=== PATIENT | male | born 1935 | race Caucasian/White ===

== ENCOUNTER 2023-11-08 19:30 | Inpatient (IN) | payer OTHER, SELFPAY ==
[2023-11-08] VITALS (19 sets, daily range): BP systolic 110–168; BP diastolic 65–144; BMI 24.5; BMI 24.3
--- NOTE | 2023-11-08 12:56 | ED.GENMED ---
History of Present Illness
General
Chief Complaint: Breathing Problem
Source: patient
Exam Limitations: none
Time Seen by Provider: 11/08/23 12:47
Nursing documentation reviewed up to this point in time: agreed with
Travel History
Have you had any contact with someone who has COVID-19?: No
Do you have any symptoms of coronavirus? Fever > 100 degrees, chills, cough, shortness of breath, sore throat, loss of taste or smell, muscle aches, or headache?: No
History of Present Illness
History of Present Illness:
88-year-old male with a past medical history of DVT, diabetes, BPH who presents to the emergency department for evaluation of shortness of breath. Patient reports onset of symptoms about a week ago and have been constant and worsening since that
time. He reports dyspnea with even light exertion now having some mild dyspnea at rest. He denies any chest pain. He denies any coughing. He has not had any fever or chills or URI type symptoms. He has not noticed any swelling or pain in his
legs. He denies any other complaints today.
Past History
Past History
ED Past Medical History: HTN, NIDDM and Other (DVT)
ED Past Surgical History: Other (Hiatal hernia repair at [facility] last year)
Social History
Tobacco: Former smoker
Alcohol: None
Drug: None
Personal:
Living: alone ([place])
Employment: Retired
Family History
Family History: Early CAD (Son with AL at 40 )
Review of Systems
Review of Systems
All Other Systems: ROS reviewed and negative except as documented in HPI and ROS
Constitutional: Reports fatigue; Denies fever or chills
EENT: Denies sore throat or runny nose
Respiratory: Reports trouble breathing; Denies cough
Cardiac: Denies chest pain, diaphoresis or palpitations
ABD/GI: Denies abdominal pain, nausea, vomiting or diarrhea
: Denies flank pain
Musculoskeletal: Denies edema, neck pain or back pain
Neurological: Denies dizzy, headache, weakness or numbness
Phy Exam
Physical Exam
Physical Exam:
General: Awake, alert, oriented x3 and quite pleasant; no acute distress
Head: Normocephalic, atraumatic
Eyes: Conjunctiva normal, sclera anicteric
Throat: Airway intact, handling secretions
Neck: Trachea midline, supple without meningismus
Lungs: Clear to auscultation bilaterally, no wheezing, rales, rhonchi
Heart: Regular rate and rhythm, no murmurs, gallops, or rubs
Abd: Soft, non distended, nontender
Neuro: Cranial nerves grossly intact, speech fluid
Skin: no rash
Extremities: No edema in extremities, equal pulses in all extremities
Scores
Heart Failure Risk
Heart Failure Risk Score: Not Applicable
Heart Score for Chest Pain Patients
STEMI patient?: Not applicable
Withdrawal Assessment of Alcohol
Withdrawal Assessment Completed?: Not applicable
Course
Orders/Labs/Results
Orders:
Orders
11/08/23 12:48
Electrocardiogram (*1) Urgent
Reason for Study: Shortness of Breath
EKG- Treatment ONCE
CR Chest Portable - 1 View Urgent
Comment:
Reason For Exam: sob
Reason Study Needs to be Portable: Unable to Transport
11/08/23 12:59
COVID-19 Antigen Urgent
Source: Nasal Swab
Complete Blood Count/With Diff Urgent
Comprehensive Metabolic Panel Urgent
NT-proBNP Urgent
Troponin I Urgent
Influenza A+B Rapid Molecular Urgent
NANCY Source: Nasal Swab
Specimen Description:
11/08/23 13:59
0.9% Sodium Chloride 500 ml [Nss] 500 ml IV BOLUS
11/08/23 14:08
D-Dimer Urgent
11/08/23 14:22
VQ Scan [NM Lung Scan Vent/perf ] Urgent
Comment:
Reason For Exam: worsening SOB, h/o DVT
11/08/23 16:07
US Periph Venous LOWER Ext Jostin Urgent
Comment:
Reason For Exam: +dimer, worsening SOB--eval for DVT
11/08/23 17:42
Troponin I Urgent
0.9% Sodium Chloride 500 ml [Nss] 500 ml IV BOLUS
Abnormal Lab Results
11/08/23 11/08/23
12:59 14:08
WBC 4.3 L 10^3/uL
(4.8-10.8)
RBC 3.24 L 10^6/uL
(4.70-6.10)
Hgb 11.4 L g/dL
(13.0-18.0)
Hct 31.8 L %
(39.0-52.0)
MCV 98.1 H fL
(80.0-94.0)
MCH 35.2 H pg
(27.0-31.0)
Plt Count 117 L 10^3/uL
(130-400)
Absolute Lymphs (auto) 0.7 L 10^3/uL
(1.2-3.4)
Lymphocytes % 16.4 L %
(20.5-51.1)
Monocytes % 11.0 H %
(1.7-9.3)
D-Dimer 12.32 H ug/mlFEU
(0.00-0.50)
Carbon Dioxide 20 L mmol/L
(22-30)
BUN 42 H mg/dl
(9-20)
Creatinine 2.5 H mg/dL
(0.7-1.3)
Glucose 102 H mg/dl
(70-99)
11/08/23 12:59
02/22/24 12:59
Vital Signs
Initial and Last Documented VS:
Initial Vital Signs
Temp Pulse Resp BP Pulse Ox
36.8 C 95 18 135/92 99
11/08/23 12:09 11/08/23 12:09 11/08/23 12:09 11/08/23 12:09 11/08/23 12:09
Last Documented Vital Signs
Temp Pulse Resp BP Pulse Ox
36.8 C 68 16 132/72 97
11/08/23 12:09 11/08/23 16:00 11/08/23 16:00 11/08/23 16:00 11/08/23 15:45
MDM/Problems Addressed
Differential Diagnosis Includes:
Pneumonia, anemia, CHF, pneumothorax, pulmonary embolism
MDM/Problems Addressed:
88-year-old male with history as above presents for evaluation of worsening shortness of breath over the past week. No chest pain. Vital signs here are normal including a pulse ox of 99% on room air with a respiratory rate of 18. Physical exam as
above. Plan to place an IV check labs including a CBC and a CMP, troponin, BNP. Will check viral swabs and a chest x-ray to start. He does have a history of DVT, PE a consideration (patient says DVT was in the distant past and he is no longer
taking anticoagulation)�will check a D-dimer. Will monitor on telemetry reassess after the above.
Labs reviewed: CBC shows no significant deviations from baseline, CMP shows significant AGUSTIN with creatinine of 2.5 from baseline of 1. Troponin negative but detectable at 0.016; BNP marginally elevated at 900. Viral swabs negative. Chest x-ray no
acute disease. His D-dimer was markedly elevated at 12. Unfortunately with his GFR less than 30 hesitant to give IV contrast for CTA to rule out PE. Discussed with radiology will send for a VQ scan. Will send for bilateral lower extremity
ultrasound. Continue to monitor. Anticipate admission for AGUSTIN and worsening exertional dyspnea pending imaging to evaluate for thromboembolic disease.
Ultrasound negative for DVT. VQ scan pending�will plan for admission to hospitalist for at least AGUSTIN and worsening exertional dyspnea with VQ scan pending will start heparin if intermediate or high probability study. Discussed with hospitalist for
admission.
Chronic conditions affecting care:
DVT
*Radiology
Radiology exam reviewed: preliminary read by ED provider and radiology read reviewed
*Pulse Oximetry
Patient hypoxic: no
*EKG
Interpreted by ED Provider?: Yes
Comparison EKG: no changes
Heart Rate: 76
Rate: normal
Rhythm: sinus
Mcintosh: left axis deviation
Interval: normal interval
QRS Pattern: right bundle branch block
Ischemia: non-specific ST changes
*Critical Care Note
Total Time (30-74mins, 75-104mins- exclusive of procedures): Not Applicable
Data Reviewed
Source: patient and records (Reviewed note from PCP office)
Patient Management
Discussion with other providers: Hospitalist (Discussed with hospitalist)
Escalation/DeEscalation of care consider admission/obs:
Admission indicated
ED Attending Note
-
Portions of this chart may have been created with voice recognition software.� Occasional wrong word or��sound alike� substitutions may have occurred due to the inherent limitations of voice recognition software.
Discharge Plan
Departure
Patient Disposition: Admit
Date of Disposition: 11/08/23
Time of Disposition: 17:57
Admit to doctor: Leesa
Presentation/result/management discussed w/ accepting MD/DO: Hospitalist
Discharge Problem:
AGUSTIN (acute kidney injury), Exertional dyspnea
Prescriptions:
No Action
escitalopram oxalate 10 MG tablet
20 mg PO DAILY
isotretinoin [Claravis] 40 MG capsule
40 mg PO SUWE
hydrocodone-acetaminophen 1 EACH tablet
1 ea PO BIDPRN PRN (Reason: severe pain)
mirtazapine 30 MG tablet
30 mg PO HS
ranitidine HCl [Zantac] 150 MG tablet
150 mg PO HS
omeprazole 20 MG capsule,delayed release(DR/EC)
20 mg PO DAILY
azelastine 1 SPRAY aerosol,spray
1 spray intranasal BID
albuterol sulfate 18 GM HFA aerosol inhaler
1 - 2 puff inhalation R Q6HPRN PRN (Reason: sob)
guaifenesin [Mucus Relief ER] 600 MG tablet extended release 12hr
600 mg PO BIDPRN PRN (Reason: cough,congestion)
dupilumab [Dupixent Syringe] 300 MG/2 ML syringe
300 mg SQ Q2W
guaifenesin [Mucus Relief ER] 600 MG tablet extended release 12hr
600 mg PO Q12 Qty: 30 0RF
doxycycline hyclate 100 MG capsule
100 mg PO Q12 Qty: 14 0RF
cefpodoxime 200 MG tablet
200 mg PO Q12H Qty: 14 0RF
prednisone 10 MG tablet
10 mg PO .TAPER Qty: 26 0RF
Rx Instructions:
60mg on days 1-2; 40mg on days 3-4; 20mg on days 5-6; 10mg on days 7-8
apixaban [Eliquis] 2.5 MG tablet
2.5 mg PO DIRECTED Qty: 0 0RF
Patient Comments:
11/19/19 Patient alternates taking BID and daily every other day
Rx Instructions:
Take two time a day on even days and one time a day on odd days
metformin 500 MG tablet
500 mg PO DAILY Qty: 30 0RF
methylprednisolone [Medrol] 4 mg tablet
4 mg PO DAILY Qty: 21 0RF
Rx Instructions:
Dosepak taper as directed
tramadol 50 mg tablet
25 mg PO Q6H PRN (Reason: Pain) Qty: 14 0RF
Referrals:
Randi Villarreal DO [Family Provider] -
Interventions
Interventions:
*Risk Screen - Suicide Last Done: 11/08/23 12:38
*General Assessment Last Done: 11/08/23 12:38
*Neglect/Abuse Screening Last Done: 11/08/23 12:38
ED- Fall Risk Assessment Last Done: 11/08/23 12:38
*ED COVID-19 Vaccine History Last Done: 11/08/23 12:38
ED- Cardiac Assessment Last Done: 11/08/23 12:38
ED- Pulmonary Assessment Last Done: 11/08/23 12:38
[2023-11-08 13:18] LABS: % Basophils 0.2 % (0-2); % Eosinophils 0.5 % (0-6); % Immature Granulocytes 0.2 % (0-0.5); % Lymphocytes 16.4 % (20.5-51.1); % Neutrophils 71.7 % (42.2-75.2); Absolute Lymphocytes 0.7 10^3/uL (1.2-3.4); Absolute Monocytes 0.5 10^3/uL (0.1-0.6); Absolute Neutrophils 3.1 10^3/uL (1.4-6.5); Hematocrit 31.8 % (39.0-52.0); Hemoglobin 11.4 g/dL (13.0-18.0); Mean Corp Hgb Conc. 35.8 g/dL (33.0-37.0); Mean Corpuscular Hgb 35.2 pg (27.0-31.0); Mean Corpuscular Volume 98.1 fL (80.0-94.0); Mean Platelet Volume 9.1 fL (7.4-10.4); Nucleated Red Blood Cells % 0 % (-); Platelet Count 117 10^3/uL (130-400); Red Blood Cell Count 3.24 10^6/uL (4.70-6.10); Red Cell Dist. Width 12.8 % (11.5-14.5); White Blood Cell Count 4.3 10^3/uL (4.8-10.8)
[2023-11-08 13:29] LABS: COVID-19 Antigen Negative (Negative)
[2023-11-08 13:33] LABS: ALT (SGPT) 33 U/L (0-50); AST (SGOT) 36 U/L (17-59); Albumin 4.1 g/dl (3.5-5.0); Alkaline Phosphatase 65 U/L (38-126); Blood Urea Nitrogen 42 mg/dl (9-20); Calcium 9.9 mg/dl (8.4-10.2); Carbon Dioxide 20 mmol/L (22-30); Chloride 104 mmol/L (98-107); Glucose 102 mg/dl (70-99); Potassium 4.6 mmol/L (3.5-5.1); Sodium 136 mmol/L (135-145); Total Bilirubin 0.7 mg/dl (0.2-1.3); Total Protein 6.6 g/dl (6.3-8.2); eGFR 24.41
[2023-11-08 13:40] LABS: NT-proBNP 900 pg/ml; Troponin I 0.016 ng/ml
[2023-11-08] MEDS: NSS 500 IV ×2 (14:16→18:14)
[2023-11-08 14:42] LABS: D-Dimer 12.32 ug/mlFEU (0.00-0.50)
--- NOTE | 2023-11-08 18:45 | HPS.HSE ---
Family Physician
-
Family Physician: Randi Villarreal
Chief Complaint
-
shortness of breath
History of Present Illness
88-year-old male with past medical history of DVT 30 years ago, diabetes, diabetic neuropathy, BPH, hypertension, hiatal hernia, hypothyroidism, anxiety/depression, COPD, atopic dermatitis, CKD presented to the emergency room for shortness of breath
which started a week ago and has been constant and worsening since then. Shortness of breath occurs with light exertion and even at rest now. He denies any chest pain. He denies any cough. He denies any fevers or chills. He does hear some
wheezing which started around the same time. Denies dizziness. He denies any swelling in the legs. He has had cramping in the legs at nighttime for the past few years for which he takes ydyc-ycq-poqsdim medication which helps.
Patient states that he had DVTs in the legs 30 years ago for which she was on a blood thinner. He had been on blood thinner until 2 years ago when it was discontinued by his primary for unclear reasons. He denies any problems with the medication
or bleeding. He denies any recent travel history or surgeries. He denies any new medications.
He reports that he has a history of CKD but does not see a wildlife biologist.
He had been a smoker for 30 years smoking a pack a day but quit 20 years ago. He drinks 1 drink of spirits every night.
Medical History
Past Medical History
Past Medical History: Reports Other (DVT 30 years ago, diabetes, diabetic neuropathy, BPH, hypertension, hiatal hernia, hypothyroidism, anxiety/depression, COPD, atopic dermatitis, CKD)
Past Surgical History: Reports None
Social History
Tobacco: Former Smoker
Alcohol: None
Drug: None
Family History
Family History: Not pertinent
Allergies / Home Medications
Allergies reflects when Allergies were last updated in [facility].
Home Medications with original date entered in [facility]
Allergy/Medication List:
Allergies
Allergy/AdvReac Type Severity Reaction Status Date / Time
Penicillins Allergy Rash Verified 11/08/23 12:37
shellfish derived Allergy Nausea / Verified 11/08/23 12:37
Vomiting
Home Medications
azelastine 137 mcg (0.1 %) nasal spray aerosol 1 spray intranasal BID 11/19/19
guaifenesin 600 mg tablet, extended release 12 hr (Mucus Relief ER) 600 mg PO BIDPRN PRN cough,congestion 11/19/19
mirtazapine 30 mg tablet 30 mg PO HS 11/19/19
omeprazole 20 mg capsule,delayed release 20 mg PO DAILY 11/19/19
cholecalciferol (vitamin D3) 25 mcg (1,000 unit) tablet (Vitamin D3) 50 mcg PO DAILY 11/08/23
cyanocobalamin (vitamin B-12) 500 mcg tablet (Vitamin B-12) 500 mcg PO DAILY 11/08/23
docusate sodium 100 mg capsule 100 mg PO BID 11/08/23
escitalopram oxalate 20 mg tablet 20 mg PO DAILY 11/08/23
hydrocodone 5 mg-acetaminophen 325 mg tablet 1 tab PO BID PRN moderate pain/ sleep 11/08/23
levocetirizine 5 mg tablet (Xyzal) 5 mg PO QPM 11/08/23
levothyroxine 50 mcg tablet 50 mcg PO DAILY 11/08/23
polyethylene glycol 3350 17 gram oral powder packet (Miralax) 17 g PO DAILY 11/08/23
psyllium husk 3.4 gram/5.4 gram oral powder (Metamucil) 1 tbsp PO DAILY 11/08/23
sennosides 8.6 mg tablet (senna) 8.6 mg PO BID 11/08/23
tamsulosin 0.4 mg capsule 0.4 mg PO HS 11/08/23
upadacitinib 15 mg tablet,extended release 24 hr (Rinvoq) 15 mg PO DAILY 11/08/23
Review of Systems
-
History Source: Patient
A 12 point ROS was completed and negative except as noted: Yes
Constitutional: Reports No Symptoms
EENT: Reports No Symptoms
Respiratory: Reports See HPI
Cardiac: Reports No Symptoms
Abdomen/GI: Reports No Symptoms
: Reports No Symptoms
Musculoskeletal: Reports No Symptoms
Skin: Reports No Symptoms
Neurological: Reports No Symptoms
Endocrine: Reports No Symptoms
Hematologic/Lymphatic: Reports No Symptoms
Psych: Reports No Symptoms
Physical Exam
Vital Signs
Vital Signs
Temp Pulse Resp BP Pulse Ox
98.2 F 111 23 120/103 97
11/08/23 12:09 11/08/23 18:18 11/08/23 18:18 11/08/23 18:18 11/08/23 15:45
Physical Exam
General: Well Developed, Well Nourished and No Apparent Distress
HEENT: NormoCephalic, Moist mucous membranes and Atraumatic
Respiratory: Clear
Cardiac: S1/S2 and Regular Rhythm; No Murmur or Rub
GI: Soft, Non Tender, Non Distended and Normal Bowel Sounds; No Organomegaly
Rectal: Deferred by Provider
Musculoskeletal: No Clubbing, No Cyanosis and No Edema
Skin: No Rash
Neuro: Nonfocal/grossly intact
Laboratory Results
-
11/08/23 12:59
11/08/23 12:59
Laboratory Results
Total Bilirubin 0.7 mg/dl (0.2-1.3) 11/08/23 12:59
AST 36 U/L (17-59) 11/08/23 12:59
ALT 33 U/L (0-50) 11/08/23 12:59
Alkaline Phosphatase 65 U/L (38-126) 11/08/23 12:59
Troponin I 0.016 ng/ml 11/08/23 12:59
Data Reviewed
-
Lab Data: Labs Reviewed by me
Old Records: Reviewed
Impression/Plan
-
IMPRESSION:
PLAN:
# Dyspnea/tachycardia highly concerning for pulmonary embolism
# History of unprovoked DVTs
-Slight left lower lobe wheezing on examination but doubt this is the explanation for his dyspnea
-Chest x-ray negative
-COVID-negative, influenza pending
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
-D-dimer of 12
-Cannot perform CT PE due to renal function
-Bilateral venous ultrasound negative
-VQ scan showing low probability of pulmonary embolism
-Check echocardiogram
-Will restart Eliquis which patient has been on for many years given history of unprovoked DVTs in the past. Will start 10 mg BID treatment dosage for 7 days followed by 5mg BID
# Acute kidney injury on CKD versus pure CKD secondary to diabetic nephropathy
-trial of maintenance IV fluids
-Check urinalysis, microalbumin to creatinine ratio
COPD
-Slight left lower lobe wheezing but not in exacerbation
Type 2 diabetes
-Not on treatment
Diabetic neuropathy
BPH
Essential hypertension
Hiatal hernia status post repair
-Continue omeprazole
Hypothyroidism
-Continue levothyroxine
Anxiety/depression
-Continue Lexapro, mirtazapine
Atopic dermatitis
-Continue Rinvoq
Chronic pain
-Continue Vicodin
Constipation
-Continue bowel regimen
DNR/DNI
DVT prophylaxis�Eliquis
Regular diet
[2023-11-08 18:54] LABS: Troponin I 0.022 ng/ml
[2023-11-08] MEDS: ELIQUIS 10 MG PO (19:39)
--- NOTE | 2023-11-08 22:30 | PTCARENOTE ---
Received pt from ED via stretcher. Pt ambulated to bathroom and bed with stand by assist. AAOx3, BP elevated, other VSS. Complains of chronic shoulder pain and headache. Oriented to floor, call eldridge within reach.
[2023-11-08] MEDS: REMERON 30 MG PO (23:21)
[2023-11-08] MEDS: COLACE 100 MG PO (23:21)
[2023-11-08] MEDS: NSS 1000 IV (23:22)
[2023-11-08] MEDS: NORCO 5/325 1 TABLET PO (23:22)
[2023-11-08] MEDS: FLOMAX 0.400000000000000022 MG PO (23:22)
[2023-11-08] MEDS: SENOKOT 8.59999999999999964 MG PO (23:22)
[2023-11-09 03:36] VITALS: BP 137/87
[2023-11-09] MEDS: SYNTHROID 50 MCG PO (06:01)
[2023-11-09 07:00] VITALS: BP 146/84
[2023-11-09 07:39] LABS: % Basophils 0.2 % (0-2); % Eosinophils 1.4 % (0-6); % Immature Granulocytes 0.2 % (0-0.5); % Lymphocytes 13.7 % (20.5-51.1); % Neutrophils 73.5 % (42.2-75.2); Absolute Eosinophils 0.1 10^3/uL (0-0.7); Absolute Lymphocytes 0.6 10^3/uL (1.2-3.4); Absolute Monocytes 0.5 10^3/uL (0.1-0.6); Absolute Neutrophils 3.3 10^3/uL (1.4-6.5); Hematocrit 30.6 % (39.0-52.0); Hemoglobin 10.8 g/dL (13.0-18.0); Mean Corp Hgb Conc. 35.3 g/dL (33.0-37.0); Mean Corpuscular Hgb 35.2 pg (27.0-31.0); Mean Corpuscular Volume 99.7 fL (80.0-94.0); Nucleated Red Blood Cells % 0 % (-); Platelet Count 113 10^3/uL (130-400); Red Blood Cell Count 3.07 10^6/uL (4.70-6.10); Red Cell Dist. Width 13.1 % (11.5-14.5); White Blood Cell Count 4.4 10^3/uL (4.8-10.8)
[2023-11-09 08:18] LABS: ALT (SGPT) 29 U/L (0-50); AST (SGOT) 34 U/L (17-59); Albumin 3.6 g/dl (3.5-5.0); Alkaline Phosphatase 62 U/L (38-126); Blood Urea Nitrogen 36 mg/dl (9-20); Calcium 9.1 mg/dl (8.4-10.2); Carbon Dioxide 21 mmol/L (22-30); Chloride 107 mmol/L (98-107); Estimated Creatinine Clearance 22 ml/min; Glucose 101 mg/dl (70-99); Potassium 4.3 mmol/L (3.5-5.1); Sodium 139 mmol/L (135-145); Total Bilirubin 0.8 mg/dl (0.2-1.3); Total Protein 6.1 g/dl (6.3-8.2); eGFR 26.98
[2023-11-09] MEDS: COLACE 100 MG PO ×2 (08:37→19:53)
[2023-11-09] MEDS: MIRALAX 17 GRAMS PO (08:37)
[2023-11-09] MEDS: VITAMIN D3 (cholecalciferol) 50 MCG PO (08:37)
[2023-11-09] MEDS: SENOKOT 8.59999999999999964 MG PO ×2 (08:37→19:53)
[2023-11-09] MEDS: METAMUCIL, KONSYL 1 PACKET PO (08:37)
[2023-11-09] MEDS: LEXAPRO 20 MG PO (08:38)
[2023-11-09] MEDS: ELIQUIS 10 MG PO ×2 (08:38→19:53)
[2023-11-09] MEDS: VITAMIN B-12 500 MCG PO (08:38)
[2023-11-09] MEDS: PROTONIX 40 MG PO (08:46)
--- NOTE | 2023-11-09 08:46 | W.PN.HOSP.TC ---
Addendum entered and electronically signed by Adam Dick DO 11/09/23 15:44:
Updated patient's son on the phone, his name is Albaro. Phone number is [phone]. Albaro is also a physician.
Still waiting for echocardiogram report. Check bladder scan, renal ultrasound. Repeat labs in the morning.
PT/OT.
Original Note:
Today's Communication/Plan
-
PT/OT
Echocardiogram
Ambulatory pulse ox on room air
Continue empiric Eliquis
Acappella, Mucinex
Assessment / Plan
Assessment / Plan
Gen-AAOx3, NAD
HEENT-NC, AT, anicteric, clear oral mm
Neck-supple
CV-reg, no M, +S1/S2
Lungs-clear B/L
Abd-soft, NT, ND
Ext-no edema
Musculoskeletal-no cyanosis, clubbing
Skin-warm and dry
Neuro-grossly non-focal
Psych-calm, cooperative
Acute hypoxic respiratory insufficiency -oxygenation normal on room air. Etiology of respiratory insufficiency unclear, presumed diagnosis is currently acute pulmonary embolism. Differential diagnosis includes acute bronchitis given the cough. I
see no infiltrates on chest x-ray to suggest pneumonia. COVID-19 and influenza negative.
Presumed pulmonary embolism -unable to do CTA given renal insufficiency. VQ scan was low probability. Lower extremity Doppler ultrasound bilaterally was negative. Awaiting echocardiogram. Concerning factor is his prior history of DVT as well as
significant D-dimer elevation.
EKG shows sinus rhythm, incomplete right bundle branch block, left anterior hemiblock.
Pancytopenia -see below. Unknown etiology or acuity. Of note his upadacitinib can cause pancytopenia. Can refer to hematology after discharge, rule out myelodysplastic syndrome versus other causes.
Thrombocytopenia -unknown acuity. Platelet count 113,000. Unknown etiology.
Macrocytic anemia -hemoglobin 10.8. Unknown acuity or etiology. Will check anemia labs.
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 Apparently baseline creatinine is 1.8-2.0. I spoke with patient's primary care doctor on the phone. He had labs drawn on the of this month, creatinine was 2.5.
Hypothyroidism -continue Synthroid.
DNR
Ambulatory dysfunction -uses a walker at home. Lives in [place]. Consult PT/OT.
Anticipated Discharge: Within 24 hours
Subjective/Interval History
-
Date of Service: November 09, 2023
Patient seen and examined. Still short of breath but less than last night. Complaining of cough.
Objective Data
-
Labs:
Laboratory Results
11/09/23
06:42
WBC 4.4 L
Hgb 10.8 L
Hct 30.6 L
Plt Count 113 L
Sodium 139
Potassium 4.3
Chloride 107
Carbon Dioxide 21 L
BUN 36 H
Creatinine 2.3 H
Glucose 101 H
Calcium 9.1
Total Bilirubin 0.8
AST 34
ALT 29
Alkaline Phosphatase 62
Vital Signs:
Vital Signs
Temp Pulse Resp BP Pulse Ox
97.7 F 84 18 146/84 100
11/09/23 07:00 11/09/23 07:00 11/09/23 07:00 11/09/23 07:00 11/09/23 07:00
I&O
11/08/23 11/09/23 11/10/23
06:59 06:59 06:59
Intake Total 480 / 480
Balance 480 / 480
Review of Systems
-
History Source: Patient
All other systems: Reviewed and negative
[2023-11-09] MEDS: MUCINEX 600 MG PO ×2 (10:00→19:53)
[2023-11-09 10:14] LABS: Total Iron Binding Capacity 284 ug/dl (261-462)
--- NOTE | 2023-11-09 10:35 | CARDSERVLU ---
Echocardiogram with [facility] completed after protocol screening completed. Allergies verified.
Patent IV site: _L wrist____
IV site flushed with 0.9% NaCl pre and post administration.
Diluted bolus method utilized to enhance visualization of ventricular verma.
Total volume given: __2.5__ mL
Patient tolerated all procedures well without complications.
[2023-11-09 11:42] VITALS: BP 139/81
[2023-11-09 12:46] LABS: Folate > 20.0 ng/ml (2.76-20); Vitamin B12 > 1000 pg/ml (239-931)
--- NOTE | 2023-11-09 13:52 | CM ---
Patient seen at bedside. Patient lives alone, in an independent apartment at [facility]. Patient PCP, Dr. Lopez, [facility]. Patient was a walker and a rollator at home. Patient states he has been independent of
ADL's and IADL's. CM will continue to follow for discharge planning needs.
Plan; home with VN vs SNF pending pt/ot assessment
[2023-11-09 13:53] LABS: Reticulocyte Count 1.6 % (0.4-2.8)
[2023-11-09 15:00] VITALS: BP 135/84
[2023-11-09] MEDS: NSS 1000 IV (15:01)
[2023-11-09] MEDS: ZYRTEC 10 MG PO (17:01)
[2023-11-09 19:00] VITALS: BP 148/82
--- NOTE | 2023-11-09 19:39 | PTCARENOTE ---
Bladder scan completed after voiding with no residual.
[2023-11-09] MEDS: NORCO 5/325 1 TABLET PO (20:01)
[2023-11-09 20:10] LABS: Urine Albumin 1+ (Neg - Trace); Urine Bilirubin Negative (Negative); Urine Character Clear (Clear); Urine Color Yellow; Urine Glucose 2+ (Negative); Urine Ketone Negative (Negative); Urine Leukocyte Negative (Negative); Urine Nitrite Negative (Negative); Urine Occult Blood Trace (Negative); Urine Specific Gravity 1.015 (<1.030); Urine Urobilinogen Negative (Neg - 1+)
[2023-11-09 20:30] LABS: Urine Red Blood Cell 0-2 /HPF (0-2); Urine White Cell 0-2 /HPF (0-5)
[2023-11-09] MEDS: FLOMAX 0.400000000000000022 MG PO (21:34)
[2023-11-09] MEDS: REMERON 30 MG PO (21:34)
[2023-11-09 21:47] LABS: Microalbumin, Random Urine 36.7 mg/dl (0.6-1.7)
[2023-11-09 23:25] VITALS: BP 168/98
[2023-11-10] VITALS (7 sets, daily range): BP systolic 115–165; BP diastolic 74–97; PULSE 81–87; O2SAT 95–99
[2023-11-10] MEDS: NSS 1000 IV (03:57)
[2023-11-10] MEDS: SYNTHROID 50 MCG PO (06:41)
[2023-11-10 08:07] LABS: % Basophils 0.3 % (0-2); % Eosinophils 2.3 % (0-6); % Immature Granulocytes 0.5 % (0-0.5); % Lymphocytes 10.9 % (20.5-51.1); % Monocytes 13.2 % (1.7-9.3); % Neutrophils 72.8 % (42.2-75.2); Absolute Eosinophils 0.1 10^3/uL (0-0.7); Absolute Lymphocytes 0.4 10^3/uL (1.2-3.4); Absolute Monocytes 0.5 10^3/uL (0.1-0.6); Absolute Neutrophils 2.9 10^3/uL (1.4-6.5); Hematocrit 30.3 % (39.0-52.0); Hemoglobin 10.7 g/dL (13.0-18.0); Mean Corp Hgb Conc. 35.3 g/dL (33.0-37.0); Mean Platelet Volume 9.7 fL (7.4-10.4); Nucleated Red Blood Cells % 0 % (-); Platelet Count 120 10^3/uL (130-400); Red Blood Cell Count 3.06 10^6/uL (4.70-6.10); Red Cell Dist. Width 13.1 % (11.5-14.5); White Blood Cell Count 3.9 10^3/uL (4.8-10.8)
[2023-11-10] MEDS: VITAMIN D3 (cholecalciferol) 50 MCG PO (08:28)
[2023-11-10] MEDS: LEXAPRO 20 MG PO (08:28)
[2023-11-10] MEDS: MUCINEX 600 MG PO (08:28)
[2023-11-10] MEDS: VITAMIN B-12 500 MCG PO (08:28)
[2023-11-10] MEDS: PROTONIX 40 MG PO (08:28)
[2023-11-10] MEDS: ELIQUIS 10 MG PO (08:28)
[2023-11-10] MEDS: MIRALAX 17 GRAMS PO (08:29)
[2023-11-10] MEDS: METAMUCIL, KONSYL 1 PACKET PO (08:29)
[2023-11-10] MEDS: COLACE 100 MG PO (08:29)
[2023-11-10] MEDS: SENOKOT 8.59999999999999964 MG PO (08:29)
[2023-11-10 08:33] LABS: Blood Urea Nitrogen 31 mg/dl (9-20); Carbon Dioxide 24 mmol/L (22-30); Chloride 107 mmol/L (98-107); Estimated Creatinine Clearance 27 ml/min; Glucose 127 mg/dl (70-99); Potassium 4.1 mmol/L (3.5-5.1); Sodium 138 mmol/L (135-145); eGFR 33.93
--- NOTE | 2023-11-10 08:50 | W.PN.HOSP.TC ---
Addendum entered and electronically signed by Adam Dick DO 11/10/23 12:00:
Seen by PT and OT, home health recommended.
Hemoglobin A1c 6.4%. Impaired fasting glucose diagnosed.
Medically stable for discharge.
Discharged on Eliquis.
Follow-up with PCP next week.
Left voicemail for patient's son Albaro to call me back with any questions.
Original Note:
Today's Communication/Plan
-
PT/OT
Assessment / Plan
Assessment / Plan
Gen-AAOx3, NAD
HEENT-NC, AT, anicteric, clear oral mm
Neck-supple
CV-reg, no M, +S1/S2
Lungs-clear B/L
Abd-soft, NT, ND
Ext-no edema
Musculoskeletal-no cyanosis, clubbing
Skin-warm and dry
Neuro-grossly non-focal
Psych-calm, cooperative
Acute hypoxic respiratory insufficiency -oxygenation normal on room air. Etiology of respiratory insufficiency unclear, presumed diagnosis is currently acute pulmonary embolism. Differential diagnosis includes acute bronchitis given the cough. I
see no infiltrates on chest x-ray to suggest pneumonia. COVID-19 and influenza negative. Not hypoxic on room air with ambulation.
Presumed pulmonary embolism -unable to do CTA given renal insufficiency. VQ scan was low probability. Lower extremity Doppler ultrasound bilaterally was negative. Concerning factor is his prior history of DVT as well as significant D-dimer
elevation.
EKG shows sinus rhythm, incomplete right bundle branch block, left anterior hemiblock. Echocardiogram shows preserved systolic function, LVEF 55 to 60%, dilated RV, possibly dilated or 8, suspected mass in the right atrium possibly consistent with
thrombus versus artifact. RA poorly visualized. PA systolic pressure 30 to 35 mmHg. Echocardiogram findings were discussed with cardiology, Dr. Oleary, he does not recommend transesophageal echocardiogram as it likely would not foreign exchange clerk.
Pancytopenia -see below. Unknown etiology or acuity. Of note his upadacitinib can cause pancytopenia. Can refer to hematology after discharge, rule out myelodysplastic syndrome versus other causes. Patient is well-known to Dr. Bessie Landin
of hematology, will refer after discharge.
Thrombocytopenia -unknown acuity. Platelet count 113,000. Unknown etiology.
Macrocytic anemia -hemoglobin 10.8. Unknown acuity or etiology. B12 and folic acid levels normal. Ferritin normal, iron pending.
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 Apparently baseline creatinine is 1.8-2.0. I spoke with patient's primary care doctor on the phone. He had labs drawn on the of this month, creatinine was 2.5. AGUSTIN improving, creatinine
down to 1.9 today. Suspect improvement with IV fluids suggesting volume depletion as etiology.
History of DM 2 -hemoglobin A1c pending. Glucose 127 this morning. Not on diabetes meds at home.
Hypothyroidism -continue Synthroid.
DNR
Ambulatory dysfunction -uses a walker at home. Lives in [place]. Consult PT/OT.
Dispo -medically stable for discharge, will await PT/OT input.
Anticipated Discharge: Today
Subjective/Interval History
-
Date of Service: November 10, 2023
Patient seen and examined. Complaining of generalized weakness. Denies shortness of breath.
Objective Data
-
Labs:
Laboratory Results
11/10/23
07:33
WBC 3.9 L
Hgb 10.7 L
Hct 30.3 L
Plt Count 120 L
Sodium 138
Potassium 4.1
Chloride 107
Carbon Dioxide 24
BUN 31 H
Creatinine 1.9 H
Glucose 127 H
Calcium 9.0
Vital Signs:
Vital Signs
Temp Pulse Resp BP Pulse Ox
98.5 F 86 18 147/92 96
11/10/23 07:35 11/10/23 07:35 11/10/23 07:35 11/10/23 07:35 11/10/23 07:35
I&O
11/09/23 11/10/23 11/11/23
06:59 06:59 06:59
Intake Total 480 / 480 96.0 / 96.0
Output Total 900 / 900
Balance 480 / 480 -804.0 / -804.0
Review of Systems
-
History Source: Patient
All other systems: Reviewed and negative
[2023-11-10 09:07] LABS: Iron 90 ug/dl (49-181)
[2023-11-10 11:25] LABS: Glycohemoglobin (HgbA1c) 6.4 % (4.0-5.6)
--- NOTE | 2023-11-10 12:06 | W.DS.TRANS ---
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
-
Discharge Instructions:
Discharge Diagnosis/Procedures Presumed pulmonary embolism, pancytopenia, acute
kidney injury, chronic kidney disease stage III
Diet Regular
Activity As tolerated
Driving Restrictions As prior to admission
Bathing Restrictions None
Other Services VN,PT
Instructions:
Stand-Alone Forms:
Changes to Home Medications: No
Discharge Medications:
DC Medications w/original date entered in [employer]
azelastine 137 mcg (0.1 %) nasal spray aerosol 1 spray intranasal BID Lung/Breathing Issues 11/19/19
guaifenesin 600 mg tablet, extended release 12 hr (Mucus Relief ER) 600 mg PO BIDPRN PRN cough,congestion 11/19/19
mirtazapine 30 mg tablet 30 mg PO HS Mental Health/Anxiety 11/19/19
omeprazole 20 mg capsule,delayed release 20 mg PO DAILY Gastrointestinal Issue 11/19/19
cholecalciferol (vitamin D3) 25 mcg (1,000 unit) tablet (Vitamin D3) 50 mcg PO DAILY Supplement 11/08/23
cyanocobalamin (vitamin B-12) 500 mcg tablet (Vitamin B-12) 500 mcg PO DAILY Supplement 11/08/23
docusate sodium 100 mg capsule 100 mg PO BID Constipation 11/08/23
escitalopram oxalate 20 mg tablet 20 mg PO DAILY Mental Health/Anxiety 11/08/23
hydrocodone 5 mg-acetaminophen 325 mg tablet 1 tab PO BID PRN moderate pain/ sleep 11/08/23
levocetirizine 5 mg tablet (Xyzal) 5 mg PO QPM Allergies 11/08/23
levothyroxine 50 mcg tablet 50 mcg PO DAILY Thyroid 11/08/23
polyethylene glycol 3350 17 gram oral powder packet (Miralax) 17 g PO DAILY Constipation 11/08/23
psyllium husk 3.4 gram/5.4 gram oral powder (Metamucil) 1 tbsp PO DAILY Constipation 11/08/23
sennosides 8.6 mg tablet (senna) 8.6 mg PO BID Constipation 11/08/23
tamsulosin 0.4 mg capsule 0.4 mg PO HS Urinary Issue 11/08/23
upadacitinib 15 mg tablet,extended release 24 hr (Rinvoq) 15 mg PO DAILY janus kinase inhib 11/08/23
apixaban 5 mg tablet (Eliquis) 5 mg PO BID #70 tabs 11/10/23
Home Medication Changes
Pending Results: No
--- NOTE | 2023-11-10 15:42 | CM ---
Addendum entered by Juliet Leos RN 11/10/23 15:45:
LM with admission to add [facility] and family number to summary.
Original Note:
MD entered order for discharge.
LM with son Albaro who is in [place].
Pt could not locate [facility] .
CM called [facility] and called [facility] [phone] and she said she veronica drive him hime.
Offered VN he declined need.
PLAN Home to [facility] no needs
== END 2023-11-10 16:32 | disposition home or self-care (01) | DRG 176 ==
LOC: 4 EAST ACU 19:30
PROVIDERS: ADMITTING PHYSICIAN Hospitalist; ATTENDING PHYSICIAN Hospitalist; EMERGENCY PHYSICIAN Emergency Medicine; FAMILY PHYSICIAN Internal Medicine
DX: I26.99 Other pulmonary embolism without acute cor pulmonale (principal); N17.9 Acute kidney failure, unspecified; D61.818 Other pancytopenia; Z87.891 Personal history of nicotine dependence; N18.32 Chronic kidney disease, stage 3b; J44.9 Chronic obstructive pulmonary disease, unspecified; E11.22 Type 2 diabetes mellitus with diabetic chronic kidney disease; E11.40 Type 2 diabetes mellitus with diabetic neuropathy, unspecified; I12.9 Hypertensive chronic kidney disease with stage 1 through stage 4 chronic kidney disease, or unspecified chronic kidney disease; E03.9 Hypothyroidism, unspecified; F32.A Depression, unspecified; F41.9 Anxiety disorder, unspecified; L20.9 Atopic dermatitis, unspecified; K59.00 Constipation, unspecified; Z66 Do not resuscitate; R09.02 Hypoxemia; R06.89 Other abnormalities of breathing; D69.6 Thrombocytopenia, unspecified; D53.9 Nutritional anemia, unspecified; Z11.52 Encounter for screening for COVID-19
CPT/HCPCS: 71045; 76770; 78582; 80048; 80053; 81003; 81015; 82043; 82570; 82607; 82728; 82746; 83036; 83540; 83550; 83880; 84484; 85025; 85045; 85379; 87070; 87502; 87811; 93005; 93306; 93970; 96360; 96361; 97162; 97166; 99285; A9540; A9567; Q9950

== ENCOUNTER → 2024-01-25 06:34 | Day surgery (SDC) | payer OTHER, SELFPAY ==
[2024-01-25 10:59] LABS: Glucose - Point of Care 86 mg/dl (70-99)
== END ==
LOC: GI 06:34
PROVIDERS: ATTENDING PHYSICIAN Specialist
DX: K52.9 Noninfective gastroenteritis and colitis, unspecified (principal); K64.8 Other hemorrhoids; K57.30 Diverticulosis of large intestine without perforation or abscess without bleeding; D12.3 Benign neoplasm of transverse colon
CPT/HCPCS: 45385; 45380; 88305; 82962

== ENCOUNTER 2024-03-07 17:08 | Emergency (ER) | payer OTHER, SELFPAY ==
[2024-03-07] VITALS (9 sets, daily range): BP systolic 139–167; BP diastolic 77–90; PULSE 89–90; BMI 25.1
[2024-03-07 17:35] LABS: % Basophils 0.4 % (0-2); % Eosinophils 0.4 % (0-6); % Lymphocytes 26.6 % (20.5-51.1); % Monocytes 13.9 % (1.7-9.3); % Neutrophils 58.7 % (42.2-75.2); Absolute Lymphocytes 0.6 10^3/uL (1.2-3.4); Absolute Monocytes 0.3 10^3/uL (0.1-0.6); Absolute Neutrophils 1.4 10^3/uL (1.4-6.5); Hematocrit 31.9 % (39.0-52.0); Hemoglobin 10.8 g/dL (13.0-18.0); Mean Corp Hgb Conc. 33.9 g/dL (33.0-37.0); Mean Corpuscular Hgb 34.7 pg (27.0-31.0); Mean Corpuscular Volume 102.6 fL (80.0-94.0); Mean Platelet Volume 9.5 fL (7.4-10.4); Nucleated Red Blood Cells % 0 % (-); Platelet Count 180 10^3/uL (130-400); Red Blood Cell Count 3.11 10^6/uL (4.70-6.10)
[2024-03-07 17:45] LABS: ALT (SGPT) 16 U/L (0-50); AST (SGOT) 30 U/L (17-59); Albumin 4.5 g/dl (3.5-5.0); Alkaline Phosphatase 59 U/L (38-126); Blood Urea Nitrogen 38 mg/dl (9-20); Calcium 9.7 mg/dl (8.4-10.2); Carbon Dioxide 24 mmol/L (22-30); Chloride 103 mmol/L (98-107); Estimated Creatinine Clearance 18 ml/min; Glucose 110 mg/dl (70-99); Potassium 4.5 mmol/L (3.5-5.1); Sodium 137 mmol/L (135-145); Total Bilirubin 0.4 mg/dl (0.2-1.3); Total Protein 6.6 g/dl (6.3-8.2); eGFR 21.17
[2024-03-07 17:48] LABS: White Blood Cell Count 2.4 10^3/uL (4.8-10.8)
[2024-03-07 17:57] LABS: Troponin I < 0.012 ng/ml
--- NOTE | 2024-03-07 20:16 | ED.GENMED ---
History of Present Illness
General
Chief Complaint: Fainting/Passed Out
Source: patient
Exam Limitations: none
Time Seen by Provider: 03/07/24 19:43
History of Present Illness
History of Present Illness:
This is a 89 year old male that comes in with c/o syncope. States that he was out for lunch with his Cousins. States that they came out from eating and they were then going into [facility]. States that they must have seen that he was going to
pass out and they caught him and lowered him to the ground. States that he did have one drink. States that about 6 months ago he felt like he was going to pass out and he put himself on the floor. Denies any fever, chills, chest pain, SOB, abd
pain, nausea, vomiting, diarrhea, headache, dizziness.
Past History
Past History
ED Past Medical History: Cancer (Skin CA), HTN, NIDDM (Managed with diet), Psychiatric (Depression) and Other (DVT, Headache, Renal calculus, Iron def anemia, Ulcerative colitis)
ED Past Surgical History: Orthopedic (Right shoulder Rotator cuff repair, Left knee replacement, Left hip replacement. ) and Other (Hiatal hernia repair at [place] last year, Parotid tumor removed, Detached retina, Lasik eye surgery, Hernia repair X
2)
Social History
Tobacco: Former smoker
Alcohol: Daily (1 Greek mist with sil jay)
Drug: None
Personal:
Living: assisted living ([facility])
Employment: Retired
Family History
Family History: Early CAD (Son with NE at 40 )
Review of Systems
Review of Systems
All Other Systems: ROS reviewed and negative except as documented in HPI and ROS
Constitutional: Reports no symptoms; Denies fever or chills
EENT: Reports no symptoms
Respiratory: Reports no symptoms; Denies cough or trouble breathing
Cardiac: Reports no symptoms; Denies chest pain
ABD/GI: Reports no symptoms; Denies abdominal pain, nausea, vomiting or diarrhea
: Reports no symptoms; Denies dysuria, frequency or urgency
Musculoskeletal: Reports no symptoms
Skin: Reports no symptoms
Neurological: Reports no symptoms; Denies dizzy or headache
Psychiatric: Reports no symptoms
Phy Exam
General Physical Exam
General Presentation: no apparent distress
General age: appears stated age
General Skin: warm and dry
General Habitus: elderly
General Mental: alert
General Hydration: dry mucous membranes
ENT Exam
ENT Exam: TM's normal, pharynx normal and neck supple
Eye Exam
Eye Exam: EOMI
Cardiovascular Exam
Cardiovascular Exam: regular rate/rhythm, no edema and normal peripheral pulses
Pulmonary Exam
Pulmonary Exam: lungs clear, no respiratory distress, no rales, chest non tender, no crackles, no rhonchi, no wheezing and no cough
Gastrointestinal Exam
Gastrointestinal Exam: normal bowel sounds, non tender, soft, no organomegaly, no pulsatile mass and non distended
Musculoskeletal Exam
Musculoskeletal Exam: full ROM and no edema
Skin Exam
Skin Exam: normal color, warm/dry, no rash and no petechia
Psychiatric Exam
Psychiatric Exam: normal mood/affect
Course
Orders/Labs/Results
Orders:
Orders
03/07/24 17:09
Electrocardiogram (*1) Urgent
Reason for Study: Chest Pain
Cardiac Monitoring- Treatment ONCE
EKG- Treatment ONCE
IV Insert/Care/Rem.- Treatment PRN
O2 Therapy [RESP] Urgent
Titrate/Wean O2 to maintain O2 sat greater than (%): 90
Special Instructions: Maintain sats >/=90%
Pulse Ox/spot Check [RESP] Urgent
Quantity: 1
Special Instructions: ON ROOM AIR
03/07/24 17:20
Complete Blood Count/With Diff Urgent
Comprehensive Metabolic Panel Urgent
Troponin I Urgent
03/07/24 20:08
EKG- Treatment ONCE
0.9% Sodium Chloride 1000 ml [Nss] 1,000 ml IV BOLUS
03/07/24 20:16
Orthostatic VS- Treatment ONCE
03/07/24 20:20
Electrocardiogram (*1) Urgent
Reason for Study: Syncope
Other Reason for Exam: Repeat with Troponin
03/07/24 20:27
Troponin I Urgent
Abnormal Lab Results
03/07/24
17:20
WBC 2.4 L* 10^3/uL
(4.8-10.8)
RBC 3.11 L 10^6/uL
(4.70-6.10)
Hgb 10.8 L g/dL
(13.0-18.0)
Hct 31.9 L %
(39.0-52.0)
MCV 102.6 H fL
(80.0-94.0)
MCH 34.7 H pg
(27.0-31.0)
Absolute Lymphs (auto) 0.6 L 10^3/uL
(1.2-3.4)
Monocytes % 13.9 H %
(1.7-9.3)
BUN 38 H mg/dl
(9-20)
Creatinine 2.8 H mg/dL
(0.7-1.3)
Glucose 110 H mg/dl
(70-99)
03/07/24 17:20
03/07/24 17:20
Leukopenia, RBC low, H/H low Anemia, Dehydration. Renal insufficiency, Glucose nonfasting. Troponin <0.012
Second Troponin <0.012
Vital Signs
Initial and Last Documented VS:
Initial Vital Signs
Pulse Resp BP Pulse Ox
78 26 151/86 99
03/07/24 17:10 03/07/24 17:10 03/07/24 17:10 03/07/24 17:10
Last Documented Vital Signs
Temp Pulse Resp BP Pulse Ox
97.9 F 95 22 143/79 98
03/07/24 17:14 03/07/24 21:00 03/07/24 21:00 03/07/24 21:00 03/07/24 17:45
MDM/Problems Addressed
Differential Diagnosis Includes:
Dehydration. Syncope
MDM/Problems Addressed:
This is a 89 year old male that comes in with c/o syncope. State that he was out with his cousins and they were going back to [facility] when he passed out. States that they caught him and lowered him to the ground.
Will check labs, Give IV fluids
Back into see patient and son. Explained that his Second Troponin was normal. However, his WBC are very low. Patient states that he does see Dr. Landin as this has happened in the past. Encouraged patient to follow up with her on Sunday. Patient
to also see the PCP as his Kidney function, his Cr is going up. Son states that he is usually in the 2's. Encourage patient to stay in out of the head and increase his water intake. Return with any concerns.
Chronic conditions affecting care:
NA
Acute Exacerbation and/or Progression of Chronic Illness:
NA
*Pulse Oximetry
Patient hypoxic: no
*EKG
Interpreted by ED Provider?: Yes
Heart Rate: 71
Rate: normal
Rhythm: sinus and PVC's
Ely: left axis deviation
Interval: normal interval
QRS Pattern: normal QRS
Ischemia: no ischemia
*Ballistics Expert Interpretation
Rate: normal
Heart Rate: 82
Rhythm: sinus
*Critical Care Note
Total Time (30-74mins, 75-104mins- exclusive of procedures): Not Applicable
ED Attending Note
-
Portions of this chart may have been created with voice recognition software.� Occasional wrong word or��sound alike� substitutions may have occurred due to the inherent limitations of voice recognition software.
Discharge Plan
Departure
Patient Disposition: Home (Routine Discharge)
Date of Disposition: 03/07/24
Time of Disposition: 21:56
Patient with high blood pressure during this ER visit?: Yes
Condition: Good
Covid-19: Not Applicable
Discharge Problem:
Syncope, Acute dehydration
Instructions: Syncope (Fainting) (DC), Dehydration, Adult ED, BLOOD PRESSURE
Prescriptions:
No Action
mirtazapine 30 MG tablet
30 mg PO HS
omeprazole 20 MG capsule,delayed release(DR/EC)
20 mg PO DAILY
azelastine 1 SPRAY aerosol,spray
1 spray intranasal BID
guaifenesin [Mucus Relief ER] 600 MG tablet extended release 12hr
600 mg PO BIDPRN PRN (Reason: cough,congestion)
polyethylene glycol 3350 [Miralax] 17 gram Powder In Packet
17 g PO DAILY
hydrocodone-acetaminophen 5-325 mg tablet
1 tab PO BID PRN (Reason: moderate pain/ sleep)
Patient Comments:
11/08/2023: last filled 10/09/23, 60 tabs for 30 days from [facility]
tamsulosin 0.4 mg capsule
0.4 mg PO HS
levothyroxine 50 mcg tablet
50 mcg PO DAILY
escitalopram oxalate 20 mg tablet
20 mg PO DAILY
Metamucil 3.4 gram/5.4 gram Powder
1 tbsp PO DAILY
Rinvoq 15 mg Tablet Extended Release 24 Hr
15 mg PO DAILY
sennosides [senna] 8.6 mg Tablet
8.6 mg PO BID
cyanocobalamin (vitamin B-12) [Vitamin B-12] 500 mcg Tablet
500 mcg PO DAILY
docusate sodium 100 mg Capsule
100 mg PO BID
cholecalciferol (vitamin D3) [Vitamin D3] 25 mcg (1,000 unit) Tablet
50 mcg PO DAILY
levocetirizine [Xyzal] 5 mg Tablet
5 mg PO QPM
Eliquis 5 mg tablet
5 mg PO BID Qty: 70 0RF
Rx Instructions:
2 tabs (10mg) twice daily x 10 doses, then 1 tab (5mg) twice daily
Referrals:
Randi Villarreal, DO [Family Provider] - Follow up in 2-3 days
Activity Restrictions/Additional Instructions:
As discussed, your blood work shows that you are anemic and your WBC are very low. You are also dehydrated. Please increase your water intake to 8-8oz glasses daily. Follow up with your family doctor and Dr. Landin in the next 2-3 days for
further evaluation. Please stay inside out of the heat. IF YOU HAVE ANY FURTHER FEELING OF DIZZINESS, SYNCOPE OR YOU HAVE ANY OTHER CONCERNS PLEASE RETURN TO THE EMERGENCY ROOM.
Interventions
Interventions:
*Risk Screen - Suicide Last Done: 03/07/24 17:10
*General Assessment Last Done: 03/07/24 17:10
*Neglect/Abuse Screening Last Done: 03/07/24 17:10
ED- Fall Risk Assessment Last Done: 03/07/24 17:10
*ED COVID-19 Vaccine History Last Done: 03/07/24 17:10
ED- Cardiac Assessment Last Done: 03/07/24 17:10
ED- Neurological Assessment Last Done: 03/07/24 17:10
Discharge Date and Time
Print Language: PERSIAN
[2024-03-07] MEDS: NSS 1000 IV (21:02)
[2024-03-07 21:06] LABS: Troponin I < 0.012 ng/ml
== END 2024-03-07 22:21 | disposition home or self-care (01) ==
LOC: EMR 17:08
PROVIDERS: Clinical Nurse Specialist Family Health; EMERGENCY PHYSICIAN Emergency Medicine; FAMILY PHYSICIAN Internal Medicine
DX: R55 Syncope and collapse (principal); E86.0 Dehydration; D64.9 Anemia, unspecified; D72.819 Decreased white blood cell count, unspecified; N28.9 Disorder of kidney and ureter, unspecified; I10 Essential (primary) hypertension; E11.9 Type 2 diabetes mellitus without complications; F32.A Depression, unspecified; D50.9 Iron deficiency anemia, unspecified; K51.90 Ulcerative colitis, unspecified, without complications; I49.3 Ventricular premature depolarization; Z82.49 Family history of ischemic heart disease and other diseases of the circulatory system; Z85.828 Personal history of other malignant neoplasm of skin; Z86.718 Personal history of other venous thrombosis and embolism; Z87.442 Personal history of urinary calculi; Z87.891 Personal history of nicotine dependence; Z96.642 Presence of left artificial hip joint
CPT/HCPCS: 99283; 96360; 80053; 84484; 85025; 93005

== ENCOUNTER 2025-01-19 11:41 | Inpatient (IN) | payer OTHER, SELFPAY ==
[2025-01-18 21:49] VITALS: BP 174/99
[2025-01-18 21:54] VITALS: BP 174/99; BMI 19.6
[2025-01-18 22:23] LABS: % Basophils 0.9 % (0-2); % Eosinophils 0.9 % (0-6); % Lymphocytes 37.1 % (20.5-51.1); % Monocytes 16.7 % (1.7-9.3); % Neutrophils 44.4 % (42.2-75.2); Absolute Lymphocytes 0.8 10^3/uL (1.2-3.4); Absolute Monocytes 0.4 10^3/uL (0.1-0.6); Hemoglobin 9.8 g/dL (13.0-18.0); Mean Corp Hgb Conc. 33.8 g/dL (33.0-37.0); Mean Corpuscular Hgb 32.7 pg (27.0-31.0); Mean Corpuscular Volume 96.7 fL (80.0-94.0); Mean Platelet Volume 9.4 fL (7.4-10.4); Nucleated Red Blood Cells % 0 % (-); Platelet Count 173 10^3/uL (130-400); Red Cell Dist. Width 13.2 % (11.5-14.5); White Blood Cell Count 2.2 10^3/uL (4.8-10.8)
[2025-01-18 22:36] LABS: ALT (SGPT) 13 U/L (0-50); AST (SGOT) 20 U/L (17-59); Albumin 4.1 g/dl (3.5-5.0); Alkaline Phosphatase 89 U/L (38-126); Blood Urea Nitrogen 29 mg/dl (9-20); Calcium 9.8 mg/dl (8.4-10.2); Carbon Dioxide 25 mmol/L (22-30); Chloride 102 mmol/L (98-107); Estimated Creatinine Clearance 25 ml/min; Glucose 160 mg/dl (70-99); Potassium 4.7 mmol/L (3.5-5.1); Sodium 136 mmol/L (135-145); Total Bilirubin 0.8 mg/dl (0.2-1.3); Total Protein 6.5 g/dl (6.3-8.2); eGFR 35.98
[2025-01-18 23:00] VITALS: BP 165/93
--- NOTE | 2025-01-18 23:32 | ED.GENMED ---
History of Present Illness
<Vinh Hankins MD - Last Filed: 01/19/25 13:24>
General
Chief Complaint: Change in Mental Status
Source: patient, ambulance crew and senior care
Exam Limitations: dementia
Time Seen by Provider: 01/18/25 22:46
History of Present Illness
History of Present Illness:
Patient with history of dementia, presents to ED for evaluation secondary to increased confusion, noted over the past 1 week. Patient apparently had a fall couple weeks ago requiring rehab stint and was discharged back to his residence 1 week ago.
Since then, there has been progressively increased confusion. Upon arrival, patient is alert and awake, but confused. Patient does report starting diarrhea today with vomiting. Patient otherwise has no additional complaints.
Past History
<Vinh Hankins MD - Last Filed: 01/19/25 13:24>
Past History
ED Past Medical History: Cancer (Skin CA), HTN, NIDDM (Managed with diet), Psychiatric (Depression) and Other (DVT, Headache, Renal calculus, Iron def anemia, Ulcerative colitis)
ED Past Surgical History: Orthopedic (Right shoulder Rotator cuff repair, Left knee replacement, Left hip replacement. ) and Other (Hiatal hernia repair at [facility] last year, Parotid tumor removed, Detached retina, Lasik eye surgery, Hernia repair X
2)
Social History
Tobacco: Former smoker
Alcohol: Daily (1 [place] mist with sil jay)
Drug: None
Personal:
Living: assisted living ([facility])
Employment: Retired
Family History
Family History: Early CAD (Son with MD at 40 )
Review of Systems
<Vinh Hankins MD - Last Filed: 01/19/25 13:24>
Review of Systems
Allergies reviewed?: Yes
Unable to obtain full review of systems at this time due to: dementia
All Other Systems: Not applicable
Phy Exam
<Vinh Hankins MD - Last Filed: 01/19/25 13:24>
Physical Exam
Physical Exam:
Physical Exam
General: no apparent distress, not acutely ill. afebrile
Head: nc/at. eomi
Neck: supple. normal range of motion.
Heart: s1/s2 regular rate and rhythm, no murmur
Lungs: no acute respiratory distress. clear bilaterally
Abdomen: normal bowel sounds. not tender.
Neuro: alert and oriented x 3. no focal neurological deficits
Skin: no rash
Psychiatric: well kept. interactive and cooperative
Extremities: no edema. no calf tenderness.
Course
<Vinh Hankins MD - Last Filed: 01/19/25 13:24>
Orders/Labs/Results
Orders:
Orders
01/18/25 21:52
CT Head W/o Iv Contrast Urgent
Comment:
Reason For Exam: increased confusion
IV Insert/Care/Rem.- Treatment PRN
C difficile Antigen & Toxins Urgent
NANCY Source: Feces/Stool
Specimen Description:
Date Specimen was Collected: 01/18/25
Time Specimen was Collected: 21:53
Stool Culture Urgent
NANCY Source: Feces/Stool
Specimen Description:
Date Specimen was Collected: 01/18/25
Time Specimen was Collected: 21:53
Stool For WBC Urgent
NANCY Source: Feces/Stool
Specimen Description:
Date Specimen was Collected: 01/18/25
Time Specimen was Collected: 21:53
01/18/25 22:12
Complete Blood Count/With Diff Urgent
Comprehensive Metabolic Panel Urgent
Glycohemoglobin (HgbA1c) Urgent
01/18/25 23:08
Urinalysis Reflex To Culture Urgent
Date Specimen was Collected: 01/18/25
Time Specimen was Collected: 23:16
01/18/25 23:13
Acetaminophen [Tylenol] 650 mg PO NOW STA
Ipratropium/Albuterol Sulfate [Duoneb] 3 ml INH R NOW STA
01/18/25 23:14
Dexamethasone Sod Phosphate [Decadron] 6 mg IV NOW STA
01/19/25 00:11
Urine Microscopic Reflex Cult Urgent
01/19/25 01:38
0.9% Sodium Chloride 500 ml [Nss] 500 ml IV BOLUS
01/19/25 02:55
Case Management Consult ONCE
Case Management Consult: Discharge Planning
01/19/25 09:51
Physical Therapy Consult [Pt Eval And Treat] Urgent
Activity Level: Out of Bed-Early Mobility
01/19/25 Lunch
Regular
At Your Request: Full Participation
Does patient need a safe tray?: No
Reason for opting out of Wink Cutter Operator order writing: Provider Decision
0.9% Sodium Chloride 1000 ml [Nss] 1,000 ml IV BOLUS
01/19/25 11:20
Admit/Transfer Patient As Directed
Co-Sign Provider:
Level of Care: Inpatient admission
Assign to:: Telemetry
Physician / Group: Dar
Diagnosis: Altered mental status
Reason for Telemetry: Arrhythmia
Date to Stop Telemetry: 01/22/25
Time to Stop Telemetry: 11:00
Reason for Hospitalization: Above
Expected length of stay greater than two midnights?: Yes
ELOS- Estimated Length of Stay in days: 2
I certify the patient meets the requirements for IP care: Yes
01/19/25 11:25
Code Status As Directed
Resuscitation Status: Full Code
01/19/25 12:33
Add On- LAB Routine
Tests Added?: Hg A1c, B12, TSH
MRI Brain [MR Brain Without Contrast] Routine
Comment:
Reason For Exam: Encephalopathy
Recent pill cam endoscopy?: No
Bladder Scan As Directed
Follow Bladder Retention/Intermittent Cath Algorithm?: Yes
PRN if no void in __ hours: 6
Frequency: Per Retention Algorithm
If Bladder Scan Result >: 400
then:: Straight cath
Straight Cath As Directed
Frequency: Per Retention Algorithm
Additional Instructions: straight cath as needed per acute urinary retention algorithm for 24 hrs
Additional Instructions: for bladder scan greater than 400 mL
01/19/25 13:30
Apixaban [Eliquis] 2.5 mg PO BID
01/19/25 14:00
Pantoprazole [Protonix] 40 mg PO DAILY
01/19/25 20:00
Gabapentin [Neurontin] 300 mg PO BID
01/19/25 21:52
TSH Urgent
Comment: HGA1C,B12,TSH ADDED ON BY FLOOR 12:30PM 01-19-25
Vitamin B12 Urgent
01/19/25 22:00
Mirtazapine [Remeron] 30 mg PO HS
Tamsulosin [Flomax] 0.4 mg PO HS
01/20/25 06:00
BMP [Basic Metabolic Panel] IN AM
CBC/With Diff [Complete Blood Count/With Diff] IN AM
01/20/25 08:00
Cholecalciferol (Vitamin D3) [VITAMIN D3 (cholecalciferol)] 50 mcg PO DAILY
Escitalopram Oxalate [Lexapro] 20 mg PO DAILY
Levothyroxine [Synthroid] 50 mcg PO DAILY
cyanocobalamin (vitamin B-12) [Vitamin B-12] 100 mcg PO DAILY
minocycline 100 mg PO DAILY
upadacitinib [Rinvoq] 15 mg PO DAILY
01/22/25 11:00
DC Protocol for Telemetry ONCE
Abnormal Lab Results
01/18/25 01/19/25
22:12 00:11
WBC 2.2 L* 10^3/uL
(4.8-10.8)
RBC 3.00 L 10^6/uL
(4.70-6.10)
Hgb 9.8 L g/dL
(13.0-18.0)
Hct 29.0 L %
(39.0-52.0)
MCV 96.7 H fL
(80.0-94.0)
MCH 32.7 H pg
(27.0-31.0)
Absolute Neuts (auto) 1.0 L 10^3/uL
(1.4-6.5)
Absolute Lymphs (auto) 0.8 L 10^3/uL
(1.2-3.4)
Monocytes % 16.7 H %
(1.7-9.3)
BUN 29 H mg/dl
(9-20)
Creatinine 1.8 H mg/dL
(0.7-1.3)
Glucose 160 H mg/dl
(70-99)
Ur Occult Blood Reflex 2+ A
(Negative)
Urine RBC 7-10 A /HPF
(0-2)
Urine Bacteria (Reflex) Few A
(Negative)
Urine Albumin (Reflex) 3+ A
(Neg - Trace)
01/18/25 22:12
01/18/25 22:12
Vital Signs
Initial and Last Documented VS:
Initial Vital Signs
Pulse Resp
102 19
01/18/25 21:48 01/18/25 21:48
Last Documented Vital Signs
Temp Pulse Resp BP Pulse Ox
97.6 F 85 22 156/105 99
01/19/25 08:28 01/19/25 10:17 01/19/25 10:17 01/19/25 13:00 01/19/25 13:15
<Merle Lockett, DO - Last Filed: 01/19/25 10:14>
Orders/Labs/Results
Orders:
Orders
01/18/25 21:52
CT Head W/o Iv Contrast Urgent
Comment:
Reason For Exam: increased confusion
IV Insert/Care/Rem.- Treatment PRN
C difficile Antigen & Toxins Urgent
NANCY Source: Feces/Stool
Specimen Description:
Date Specimen was Collected: 01/18/25
Time Specimen was Collected: 21:53
Stool Culture Urgent
NANCY Source: Feces/Stool
Specimen Description:
Date Specimen was Collected: 01/18/25
Time Specimen was Collected: 21:53
Stool For WBC Urgent
NANCY Source: Feces/Stool
Specimen Description:
Date Specimen was Collected: 01/18/25
Time Specimen was Collected: 21:53
01/18/25 22:12
Complete Blood Count/With Diff Urgent
Comprehensive Metabolic Panel Urgent
Glycohemoglobin (HgbA1c) Urgent
01/18/25 23:08
Urinalysis Reflex To Culture Urgent
Date Specimen was Collected: 01/18/25
Time Specimen was Collected: 23:16
01/18/25 23:13
Acetaminophen [Tylenol] 650 mg PO NOW STA
Ipratropium/Albuterol Sulfate [Duoneb] 3 ml INH R NOW STA
01/18/25 23:14
Dexamethasone Sod Phosphate [Decadron] 6 mg IV NOW STA
01/19/25 00:11
Urine Microscopic Reflex Cult Urgent
01/19/25 01:38
0.9% Sodium Chloride 500 ml [Nss] 500 ml IV BOLUS
01/19/25 02:55
Case Management Consult ONCE
Case Management Consult: Discharge Planning
01/19/25 09:51
Physical Therapy Consult [Pt Eval And Treat] Urgent
Activity Level: Out of Bed-Early Mobility
01/19/25 Lunch
Regular
At Your Request: Full Participation
Does patient need a safe tray?: No
Reason for opting out of Wink Cutter Operator order writing: Provider Decision
0.9% Sodium Chloride 1000 ml [Nss] 1,000 ml IV BOLUS
01/19/25 11:20
Admit/Transfer Patient As Directed
Co-Sign Provider:
Level of Care: Inpatient admission
Assign to:: Telemetry
Physician / Group: Dar
Diagnosis: Altered mental status
Reason for Telemetry: Arrhythmia
Date to Stop Telemetry: 01/22/25
Time to Stop Telemetry: 11:00
Reason for Hospitalization: Above
Expected length of stay greater than two midnights?: Yes
ELOS- Estimated Length of Stay in days: 2
I certify the patient meets the requirements for IP care: Yes
01/19/25 11:25
Code Status As Directed
Resuscitation Status: Full Code
01/19/25 12:33
Add On- LAB Routine
Tests Added?: Hg A1c, B12, TSH
MRI Brain [MR Brain Without Contrast] Routine
Comment:
Reason For Exam: Encephalopathy
Recent pill cam endoscopy?: No
Bladder Scan As Directed
Follow Bladder Retention/Intermittent Cath Algorithm?: Yes
PRN if no void in __ hours: 6
Frequency: Per Retention Algorithm
If Bladder Scan Result >: 400
then:: Straight cath
Straight Cath As Directed
Frequency: Per Retention Algorithm
Additional Instructions: straight cath as needed per acute urinary retention algorithm for 24 hrs
Additional Instructions: for bladder scan greater than 400 mL
01/19/25 13:30
Apixaban [Eliquis] 2.5 mg PO BID
01/19/25 14:00
Pantoprazole [Protonix] 40 mg PO DAILY
01/19/25 20:00
Gabapentin [Neurontin] 300 mg PO BID
01/19/25 21:52
TSH Urgent
Comment: HGA1C,B12,TSH ADDED ON BY FLOOR 12:30PM 01-19-25
Vitamin B12 Urgent
01/19/25 22:00
Mirtazapine [Remeron] 30 mg PO HS
Tamsulosin [Flomax] 0.4 mg PO HS
01/20/25 06:00
BMP [Basic Metabolic Panel] IN AM
CBC/With Diff [Complete Blood Count/With Diff] IN AM
01/20/25 08:00
Cholecalciferol (Vitamin D3) [VITAMIN D3 (cholecalciferol)] 50 mcg PO DAILY
Escitalopram Oxalate [Lexapro] 20 mg PO DAILY
Levothyroxine [Synthroid] 50 mcg PO DAILY
cyanocobalamin (vitamin B-12) [Vitamin B-12] 100 mcg PO DAILY
minocycline 100 mg PO DAILY
upadacitinib [Rinvoq] 15 mg PO DAILY
01/22/25 11:00
DC Protocol for Telemetry ONCE
Abnormal Lab Results
01/18/25 01/19/25
22:12 00:11
WBC 2.2 L* 10^3/uL
(4.8-10.8)
RBC 3.00 L 10^6/uL
(4.70-6.10)
Hgb 9.8 L g/dL
(13.0-18.0)
Hct 29.0 L %
(39.0-52.0)
MCV 96.7 H fL
(80.0-94.0)
MCH 32.7 H pg
(27.0-31.0)
Absolute Neuts (auto) 1.0 L 10^3/uL
(1.4-6.5)
Absolute Lymphs (auto) 0.8 L 10^3/uL
(1.2-3.4)
Monocytes % 16.7 H %
(1.7-9.3)
BUN 29 H mg/dl
(9-20)
Creatinine 1.8 H mg/dL
(0.7-1.3)
Glucose 160 H mg/dl
(70-99)
Ur Occult Blood Reflex 2+ A
(Negative)
Urine RBC 7-10 A /HPF
(0-2)
Urine Bacteria (Reflex) Few A
(Negative)
Urine Albumin (Reflex) 3+ A
(Neg - Trace)
01/18/25 22:12
01/18/25 22:12
Vital Signs
Initial and Last Documented VS:
Initial Vital Signs
Pulse Resp
102 19
01/18/25 21:48 01/18/25 21:48
Last Documented Vital Signs
Temp Pulse Resp BP Pulse Ox
97.6 F 85 22 156/105 99
01/19/25 08:28 01/19/25 10:17 01/19/25 10:17 01/19/25 13:00 01/19/25 13:15
<Vinh Hankins MD - Last Filed: 01/19/25 13:24>
MDM/Problems Addressed
MDM/Problems Addressed:
Patient with an unremarkable workup in ED, including blood work, urinalysis, and CT head. Patient otherwise remains afebrile, hemodynamically stable, neurologically intact, without any distress nor any complaints.
Patient's presenting symptom, i.e. increased confusion, may be secondary to underlying dementia, perhaps worsened recently by fall followed by rehab stay. Left message with patient's son, to discuss any additional concerns that the family may have.
In the meantime, as patient does have history of dementia worsening, with concern that he may not be able to take care of himself and not take his medications, as prescribed, will consult case management discussed with family/facility about
potentially upgrading his care at [facility].
<Merle Lockett DO - Last Filed: 01/19/25 10:14>
*Critical Care Note
Total Time (30-74mins, 75-104mins- exclusive of procedures): Not Applicable
<Merle Lockett DO - Last Filed: 01/19/25 10:14>
Update Note
Update Note:
Attending Signout note (Merle Lockett DO)
10:00 -patient seen and evaluated over night by prior physician. 89-year-old male with underlying dementia presenting from independent living for increased confusion per son. Son not immediately available for information given time of night that
patient had come in. However, patient noted to be very confused in the emergency department. Notes some diarrhea. Vital signs in the ER significant for some mild hypertension. On my exam, patient is disoriented, seems very confused, unable to
answer direct questions. Patient's workup reviewed, patient does have a low WBC count, however appears relatively unchanged from a year ago. Patient's BUN and creatinine appears to be at baseline. CT brain completed, negative for acute process.
Urine without signs of infection. In discussion with the son via telephone, notes that this is a very acute change. He reports that he last saw him last weekend, was in his usual state of health. He has had some sort of a decline over the past
several weeks after a recent hospitalization, however ultimately able to care for self. However this weekend, very confused, found naked, not able to direct questions. At this time, more concern for metabolic encephalopathy, rather than
decompensated dementia. In the setting of diarrhea, possibly acute dehydration. Will send stool cultures and start patient IV fluids with plan for admission
ED Attending Note
<Vinh Hankins MD - Last Filed: 01/19/25 13:24>
-
Portions of this chart may have been created with voice recognition software.� Occasional wrong word or��sound alike� substitutions may have occurred due to the inherent limitations of voice recognition software.
Discharge Plan
Departure
Patient Disposition: Admit
Date of Disposition: 01/19/25
Time of Disposition: 10:13
Presentation/result/management discussed w/ accepting MD/DO: Hospitalist
Patient with high blood pressure during this ER visit?: Yes
Discharge Problem:
Metabolic encephalopathy, Altered mental status
Interventions
Interventions:
*Risk Screen - Suicide Last Done: 01/18/25 21:54
*General Assessment Last Done: 01/18/25 21:54
*Neglect/Abuse Screening Last Done: 01/18/25 21:54
*ED- Fall Risk Assessment Last Done: 01/18/25 21:54
*ED COVID-19 Vaccine History Last Done: 01/18/25 21:54
ED- Pulmonary Assessment Last Done: 01/19/25 08:28
ED-Psychological Assessment Last Done: 01/19/25 08:28
ED- Neurological Assessment Last Done: 01/19/25 08:28
ED- Cardiac Assessment Last Done: 01/19/25 08:28
ED Swallowing Screen Last Done: 01/19/25 08:28
[2025-01-19] VITALS (23 sets, daily range): BP systolic 133–179; BP diastolic 72–116; BMI 21.3
[2025-01-19 00:19] LABS: Urine Albumin 3+ (Neg - Trace); Urine Bilirubin Negative (Negative); Urine Character Clear (Clear); Urine Color Yellow; Urine Glucose Negative (Negative); Urine Ketone Negative (Negative); Urine Leukocyte Negative (Negative); Urine Nitrite Negative (Negative); Urine Occult Blood 2+ (Negative); Urine Urobilinogen Negative (Neg - 1+)
[2025-01-19 00:38] LABS: Urine Squamous Cell 0-2 /LPF (Few)
[2025-01-19 00:39] LABS: Urine Bacteria Few (Negative)
[2025-01-19] MEDS: NSS 500 IV (01:41)
--- NOTE | 2025-01-19 01:46 | EDRN ---
Pulled patient up in bed, lights turned down, resting comfortably at this time, call eldridge in reach.
--- NOTE | 2025-01-19 03:44 | EDRN ---
Patient wasn't sure if he needed to urinate, helped him with urinal ended up not having to go, patient is dry at this time,spoke with facility to verify patient does live by himself, patient will stay for case management to see him, will continue to
monitor
--- NOTE | 2025-01-19 08:59 | EDRN ---
case management currently at the pts bedside
--- NOTE | 2025-01-19 09:47 | CM ---
ED CM consult for dc planning
Call with son/ Dr. Albaro Christopher
[facility] [place]
He is typically indep with ambulation and personal care tasks
He was discharged from [facility] 3 weeks prior
He is now using a rollator for safety in/out of his apartment
He has a power W/C for use as needed, does not use often
Pt jennifer has a private duty WASHROOM ATTENDANT
Initially had WASHROOM ATTENDANT for 2 hours am /2 hours pm for personal care help and home management
Has scaled down to 2 hours daily
[facility]
No beds available at SNF
Family declined pursuing higher level of care upon SNF discharge
Per son, they do not prefer a SNF return
Son noted capability to increase private duty in the home
per [place], pt will re[facility]ire [facility] rfeerral
Referral sent via [facility] Disposition- [facility] and increased private duty
[2025-01-19] MEDS: NSS 1000 IV (10:05)
--- NOTE | 2025-01-19 10:16 | EDRN ---
physical therapy currently at the pts bedside
--- NOTE | 2025-01-19 10:25 | EDRN ---
physical therapy at the pts bedside, the pt was soiled with urine, this RN assisted physical therapy with sitting the pt up and standing up and this RN removed the pts brief and removed gown and linens and replaced with a clean gown and clean linens
--- NOTE | 2025-01-19 11:30 | HPS.HSE ---
Family Physician
-
Family Physician: Randi Villarreal
Chief Complaint
-
Altered mental status
History of Present Illness
Patient is 89 years old male with history of vascular dementia, who lives independently at assisted living presents to the emergency room with altered mental status. Patient with fairly recent admission to outside hospital November 2024 with fall and
left-sided rib fractures was discharged to rehab. Currently patient presents to ED with main complaint of increased confusion noted over the past week. Upon presentation to the emergency room patient is alert awake but confused. He has no
specific complaints, although reports starting diarrhea at the day of presentation with vomiting.
In ED patient appeared to be nontoxic, afebrile hemodynamically stable.
CT scan of the head with no acute abnormalities.
Laboratory workup only significant for chronic neutropenia, normal electrolytes, creatinine 1.8 in settings of CKD stage IV
Medical History
Past Medical History
Past Medical History: Reports Dementia, GERD, HTN, Hypercholesterolemia, Hypothyroidism and NIDDM
Additional Past Medical History:
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
Past Surgical History: Reports Other
Additional Past Surgical History:
Hawa fundoplication, parotid mass resection, TURP
Social History
Unable to obtain full social history at this time due to: Dementia
Tobacco: Non-smoker
Drug: None
Living: Assisted Living
Family History
Family History: Not pertinent
Allergies / Home Medications
Allergies reflects when Allergies were last updated in [facility].
Home Medications with original date entered in [facility]
Allergy/Medication List:
Allergies
Allergy/AdvReac Type Severity Reaction Status Date / Time
Penicillins Allergy Rash Verified 01/18/25 22:04
shellfish derived Allergy Nausea / Verified 01/18/25 22:04
Vomiting
Home Medications
mirtazapine 30 mg tablet 30 mg PO HS Mental Health/Anxiety 11/19/19
omeprazole 20 mg capsule,delayed release 20 mg PO DAILY Gastrointestinal Issue 11/19/19
cholecalciferol (vitamin D3) 25 mcg (1,000 unit) tablet (Vitamin D3) 50 mcg PO DAILY Supplement 11/08/23
cyanocobalamin (vitamin B-12) 500 mcg tablet (Vitamin B-12) 100 mcg PO DAILY Supplement 11/08/23
docusate sodium 100 mg capsule 100 mg PO BID Constipation 11/08/23
escitalopram oxalate 20 mg tablet 20 mg PO DAILY Mental Health/Anxiety 11/08/23
levocetirizine 5 mg tablet (Xyzal) 5 mg PO QPMPRN PRN allergies 11/08/23
levothyroxine 50 mcg tablet 50 mcg PO DAILY Thyroid 11/08/23
sennosides 8.6 mg tablet (senna) 8.6 mg PO DAILY Constipation 11/08/23
tamsulosin 0.4 mg capsule 0.4 mg PO HS Urinary Issue 11/08/23
upadacitinib 15 mg tablet,extended release 24 hr (Rinvoq) 15 mg PO DAILY janus kinase inhib 11/08/23
apixaban 5 mg tablet (Eliquis) 2.5 mg PO BID 01/19/25
gabapentin 300 mg capsule 300 mg PO BID 01/19/25
hydrocodone 10 mg-acetaminophen 325 mg tablet 1 tab PO TIDPRN PRN severe pain 01/19/25
minocycline 100 mg capsule 100 mg PO DAILY 01/19/25
Review of Systems
-
Unable to obtain full review of systems at this time due to: Dementia
A 12 point ROS was completed and negative except as noted: No
Physical Exam
Vital Signs
Vital Signs
Temp Pulse Resp BP Pulse Ox
97.6 F 85 22 133/77 98
01/19/25 08:28 01/19/25 10:17 01/19/25 10:17 01/19/25 10:22 01/19/25 08:28
Physical Exam
General: Well Developed, Well Nourished and No Apparent Distress
HEENT: NormoCephalic, Moist mucous membranes and Atraumatic
Respiratory: Clear
Cardiac: S1/S2 and Regular Rhythm; No Murmur or Rub
GI: Soft, Non Tender, Non Distended and Normal Bowel Sounds; No Organomegaly
Rectal: Deferred by Provider
Musculoskeletal: No Clubbing, No Cyanosis and No Edema
Skin: No Rash
Neuro: Awake, Alert, Oriented (Name only) and Nonfocal/grossly intact
Laboratory Results
-
01/18/25 22:12
01/18/25 22:12
Laboratory Results
Total Bilirubin 0.8 mg/dl (0.2-1.3) 01/18/25 22:12
AST 20 U/L (17-59) 01/18/25 22:12
ALT 13 U/L (0-50) 01/18/25 22:12
Alkaline Phosphatase 89 U/L (38-126) 01/18/25 22:12
Impression/Plan
-
IMPRESSION:
Altered mental status with concern for encephalopathy.
Other conditions:
Recent hospitalization to [facility] with fall, left-sided rib fractures, acute urinary retention.
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 Major depressive disorder
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
Eczema on Rinvoq therapy with chronic immunosuppression and neutropenia.
BPH status post TURP with prior history of retention.
Anemia of chronic disease
Hypothyroidism on replacement.
Diabetes type 2 by history not on any glucose lowering medications prior to presentation.
Nephropathy status
Status post TURP
Status post Hawa fundoplication
PLAN:
Altered mental status
Differential diagnosis metabolic encephalopathy versus CVA (less likely)
Patient with history of vascular dementia, although lives independently.
Reported decline of mental status over the period of last week.
Nontoxic-appearing
Neurologic exam with no focal findings
CT scan of the head with no acute abnormalities.
Electrolytes within normal limits including calcium and sodium. CKD with no evidence of decompensation.
Admitted for close monitoring.
MRI of the brain.
Hold hydrocodone
Update TSH, B12.
If persistent symptoms consider neurology evaluation
Continue preadmission regimen including gabapentin, escitalopram, mirtazapine
Reported diarrhea, nausea vomiting upon presentation
Currently with no symptoms.
Abdominal examination benign.
Chronic neutropenia noted.
LFTs within normal limits.
Hold laxatives.
Observe.
Chronic kidney disease stage IIIb-IV.
Creatinine at 1.8.
Monitor.
BPH, status post TURP.
Noted episode of retention requiring Mccracken catheter and later successful trial of voiding.
Bladder scan and monitor for retention.
Continue Flomax
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
On anticoagulation with Eliquis
Regimen adjusted by renal clearance
Eczema/acne.
On Rinvoq and minocycline
CODE STATUS�full code.
--- NOTE | 2025-01-19 14:43 | EDRN ---
this RN entered the pts room, the pt was soiled with urine, this RN cleaned the pt and changed the pts covidian pad and gown
[2025-01-19] MEDS: ELIQUIS 2.5 MG PO ×2 (15:44→23:26)
[2025-01-19] MEDS: PROTONIX 40 MG PO (15:44)
[2025-01-19 16:23] LABS: TSH 6.56 uIU/ml (0.47-4.68)
[2025-01-19 16:42] LABS: Vitamin B12 > 1000 pg/ml (239-931)
--- NOTE | 2025-01-19 22:05 | PTCARENOTE ---
Pt arrived onto floor @2205. Pt AAOx1 and a insole tack puller hand to the bed. Pt with no complaints of pain or SOB at this time. Pt oriented to room and call eldridge; will continue to monitor
[2025-01-19] MEDS: NEURONTIN 300 MG PO (23:26)
[2025-01-19] MEDS: FLOMAX 0.4 MG PO (23:26)
[2025-01-19] MEDS: REMERON 30 MG PO (23:26)
[2025-01-20] VITALS (8 sets, daily range): BP systolic 73–115; BP diastolic 42–66; PULSE 81–84
[2025-01-20] MEDS: SYNTHROID 50 MCG PO (05:52)
[2025-01-20 09:03] LABS: % Basophils 0.7 % (0-2); % Eosinophils 1.2 % (0-6); % Immature Granulocytes 0.2 % (0-0.5); % Lymphocytes 16.5 % (20.5-51.1); % Monocytes 18.4 % (1.7-9.3); Absolute Eosinophils 0.1 10^3/uL (0-0.7); Absolute Lymphocytes 0.7 10^3/uL (1.2-3.4); Absolute Monocytes 0.8 10^3/uL (0.1-0.6); Absolute Neutrophils 2.7 10^3/uL (1.4-6.5); Mean Corp Hgb Conc. 34.4 g/dL (33.0-37.0); Mean Corpuscular Hgb 32.4 pg (27.0-31.0); Mean Corpuscular Volume 94.1 fL (80.0-94.0); Mean Platelet Volume 9.9 fL (7.4-10.4); Nucleated Red Blood Cells % 0 % (-); Platelet Count 195 10^3/uL (130-400); Red Cell Dist. Width 12.9 % (11.5-14.5); White Blood Cell Count 4.2 10^3/uL (4.8-10.8)
[2025-01-20 09:22] LABS: Glycohemoglobin (HgbA1c) 5.9 % (4.0-5.6)
[2025-01-20 09:23] LABS: Blood Urea Nitrogen 27 mg/dl (9-20); Calcium 9.4 mg/dl (8.4-10.2); Carbon Dioxide 22 mmol/L (22-30); Chloride 102 mmol/L (98-107); Estimated Creatinine Clearance 26 ml/min; Glucose 100 mg/dl (70-99); Potassium 4.1 mmol/L (3.5-5.1); Sodium 140 mmol/L (135-145); eGFR 35.98
[2025-01-20] MEDS: MINOCIN 100 MG PO (09:40)
[2025-01-20] MEDS: VITAMIN B-12 100 MCG PO (09:41)
[2025-01-20] MEDS: PROTONIX 40 MG PO (09:41)
[2025-01-20] MEDS: ELIQUIS 2.5 MG PO ×2 (09:42→19:41)
[2025-01-20] MEDS: VITAMIN D3 (cholecalciferol) 50 MCG PO (09:42)
[2025-01-20] MEDS: NEURONTIN 300 MG PO ×2 (09:42→19:41)
[2025-01-20] MEDS: LEXAPRO 20 MG PO (09:42)
--- NOTE | 2025-01-20 11:16 | CM ---
Addendum entered by Radha Campbell 01/20/25 11:43:
CM spoke with patients son, agreeable to referral to [facility] if bed available, if not would prefer patient return home with services rather than go to a new SNF. Message to liaison at [facility] to check bed availability.
Plan; [facility] SNF if any beds vs home with [facility]/careg[facility]
Original Note:
CM reviewed chart, patient seen in chair. PT recommending SNF- per previous CM note, family not looking for SNF at this time and would prefer patient return home with caregivers/[facility]. Voicemail left for patients son, Albaro, to confirm.
CM will continue to follow for all discharge planning needs.
Plan; return home to [facility] [place] with VN/caregivers.
[2025-01-20] MEDS: TYLENOL 650 MG PO (11:44)
--- NOTE | 2025-01-20 12:04 | PTCARENOTE ---
BP 107/66 this am, recheck 82/47. No dizzyness , able to transfer to chair and back to bed with assist of 1. Did drink 480- ounces water , fair appetite. hospitalist notified. Call eldridge in reach.
[2025-01-20 14:06] LABS: Free T4 1.36 ng/dl (0.78-2.19)
--- NOTE | 2025-01-20 15:20 | W.PN.HOSP.TC ---
Today's Communication/Plan
-
Mental status improved and close to baseline
Continue supportive care
Discharge planning to half-way facility once bed is available
Assessment / Plan
Assessment / Plan
IMPRESSION:
Altered mental status with concern for encephalopathy.
Other conditions:
Recent hospitalization to [facility] with fall, left-sided rib fractures, acute urinary retention.
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 Major depressive disorder
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
Eczema on Rinvoq therapy with chronic immunosuppression and neutropenia.
BPH status post TURP with prior history of retention.
Anemia of chronic disease
Hypothyroidism on replacement.
Diabetes type 2 by history not on any glucose lowering medications prior to presentation.
Nephropathy status
Status post TURP
Status post Hawa fundoplication
PLAN:
Altered mental status
Differential diagnosis metabolic encephalopathy versus CVA (less likely)
Patient with history of vascular dementia, although lives independently.
Reported decline of mental status over the period of last week.
Nontoxic-appearing
Neurologic exam with no focal findings
CT scan of the head with no acute abnormalities.
Electrolytes within normal limits including calcium and sodium. CKD with no evidence of decompensation.
Admitted for close monitoring.
MRI of the brain negative for acute abnormality
Mildly elevated TSH at 6 with pending free T4
B12 normal
Mental status improves.
Continue preadmission regimen including gabapentin, escitalopram, mirtazapine.
Okay to reintroduce hydrocodone for chronic cervical pain
Reported diarrhea, nausea vomiting upon presentation
Currently with no symptoms.
Abdominal examination benign.
Chronic neutropenia noted.
LFTs within normal limits.
Hold laxatives.
Observe.
Chronic kidney disease stage IIIb-IV.
Creatinine at 1.8.
Monitor.
BPH, status post TURP.
Noted episode of retention requiring Mccracken catheter and later successful trial of voiding.
Bladder scan and monitor for retention.
Continue Flomax
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
On anticoagulation with Eliquis
Regimen adjusted by renal clearance
Eczema/acne.
On Rinvoq and minocycline
CODE STATUS�full code.
Anticipated Discharge: Within 24 hours
Subjective/Interval History
-
Date of Service: January 20, 2025
Objective Data
-
Labs:
Laboratory Results
01/20/25
08:06
WBC 4.2 L
Hgb 11.0 L
Hct 32.0 L
Plt Count 195
Sodium 140
Potassium 4.1
Chloride 102
Carbon Dioxide 22
BUN 27 H
Creatinine 1.8 H
Glucose 100 H
Calcium 9.4
Vital Signs:
Vital Signs
Temp Pulse Resp BP Pulse Ox
97.7 F 105 22 82/47 100
01/20/25 11:00 01/20/25 11:00 01/20/25 11:00 01/20/25 11:00 01/20/25 11:00
I&O
01/19/25 01/20/25 01/21/25
06:59 06:59 06:59
Intake Total 240 / 240
Output Total 250 / 250
Balance -250 / -250 240 / 240
Physical Exam
-
General: Well Developed and No Apparent Distress
HEENT: Normocephalic, Atraumatic and Moist Mucous Membranes
Respiratory: Clear to Auscultation
Cardiac: Regular Rhythm and S1/S2; Negative Murmur, Rub or Gallop
GI: Soft, Nontender, Nondistended and Normal Bowel Sounds; Negative Organomegaly
Rectal: Deferred by Provider
Musculoskeletal: No Clubbing, No Cyanosis and No Edema
Skin: Negative Rash
Neuro: Awake, Alert, Oriented (Name and place) and Nonfocal/Grossly Intact
--- NOTE | 2025-01-20 17:59 | PTCARENOTE ---
Patient out of bed to chair for short periods today AM BP 115/66, 3pm 82/47. Patient asymptomatic. C/o chronic neck pain - hospitalist aware and tylenol ordered. Pt did have good appetite at lunch and dinner. Had 1 episode loose stool,
incontinent large amt BM. C-Diff ordered and pending collection.
--- NOTE | 2025-01-20 18:20 | PTCARENOTE ---
Patient with 2 episodes urinary incontinence. 6 pm bladder scan 316 ml . Will cont to encourage.
[2025-01-20] MEDS: FLOMAX 0.4 MG PO (19:41)
[2025-01-20] MEDS: NORCO 5/325 2 TABLET PO (20:05)
[2025-01-20] MEDS: REMERON 30 MG PO (20:06)
[2025-01-21] VITALS (7 sets, daily range): BP systolic 83–143; BP diastolic 43–94
[2025-01-21] MEDS: NSS 500 IV (00:58)
[2025-01-21] MEDS: SYNTHROID 50 MCG PO (05:33)
--- NOTE | 2025-01-21 06:20 | W.PN.UPDATE ---
Update Note
Progress Note Update
Patient is hypotensive 88/58, hr 84. 500cc of NSS IV bolus given, recheck bp 90/60. Will start the patient on maintenance IVF 60cc/hr.
[2025-01-21 06:28] LABS: Glucose - Point of Care 180 mg/dl (70-99)
[2025-01-21] MEDS: NSS 1000 IV (06:30)
[2025-01-21 08:05] LABS: Hematocrit 31.2 % (39.0-52.0); Hemoglobin 10.5 g/dL (13.0-18.0); Mean Corp Hgb Conc. 33.7 g/dL (33.0-37.0); Mean Corpuscular Hgb 31.9 pg (27.0-31.0); Mean Corpuscular Volume 94.8 fL (80.0-94.0); Mean Platelet Volume 9.7 fL (7.4-10.4); Platelet Count 156 10^3/uL (130-400); Red Blood Cell Count 3.29 10^6/uL (4.70-6.10); Red Cell Dist. Width 13.2 % (11.5-14.5); White Blood Cell Count 5.2 10^3/uL (4.8-10.8)
[2025-01-21 08:43] LABS: Blood Urea Nitrogen 43 mg/dl (9-20); Calcium 8.3 mg/dl (8.4-10.2); Carbon Dioxide 20 mmol/L (22-30); Chloride 103 mmol/L (98-107); Estimated Creatinine Clearance 13 ml/min; Glucose 123 mg/dl (70-99); Potassium 3.8 mmol/L (3.5-5.1); Sodium 137 mmol/L (135-145); eGFR 15.56
[2025-01-21] MEDS: VITAMIN B-12 100 MCG PO (09:32)
[2025-01-21] MEDS: PROTONIX 40 MG PO (09:32)
[2025-01-21] MEDS: NEURONTIN 300 MG PO ×2 (09:32→23:37)
[2025-01-21] MEDS: LEXAPRO 20 MG PO (09:33)
[2025-01-21] MEDS: ELIQUIS 2.5 MG PO ×2 (09:33→21:26)
[2025-01-21] MEDS: MINOCIN 100 MG PO (09:33)
[2025-01-21] MEDS: VITAMIN D3 (cholecalciferol) 50 MCG PO (09:33)
--- NOTE | 2025-01-21 11:09 | CM ---
Addendum entered by Jaci Osorio 01/21/25 14:06:
credit collections manager spoke with Nasima in admissions at [facility] and there is a bed available for patient tomorrow at [facility]. Updated clinicals faxed.
Plan; Patient to transfer to [facility] tomorrow if stable.
Original Note:
Chart reviewed and plan is for possible skilled placement at the [facility], per admissions at the [facility] there are no beds available today.
Plan; To follow up with admissions at the [facility] for possible skilled placement.
[2025-01-21] MEDS: NORCO 5/325 2 TABLET PO (11:21)
--- NOTE | 2025-01-21 15:18 | W.PN.HOSP.TC ---
Today's Communication/Plan
-
Transient hypotension overnight responding to IV fluids
Noted creatinine bump.
Bladder scan.
Follow BMP
Assessment / Plan
Assessment / Plan
IMPRESSION:
Altered mental status with concern for encephalopathy.
Other conditions:
Recent hospitalization to [facility] with fall, left-sided rib fractures, acute urinary retention.
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 Major depressive disorder
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
Eczema on Rinvoq therapy with chronic immunosuppression and neutropenia.
BPH status post TURP with prior history of retention.
Anemia of chronic disease
Hypothyroidism on replacement.
Diabetes type 2 by history not on any glucose lowering medications prior to presentation.
Nephropathy status
Status post TURP
Status post Hawa fundoplication
PLAN:
Altered mental status
Differential diagnosis metabolic encephalopathy versus CVA (less likely)
Patient with history of vascular dementia, although lives independently.
Reported decline of mental status over the period of last week.
Nontoxic-appearing
Neurologic exam with no focal findings
CT scan of the head with no acute abnormalities.
Electrolytes within normal limits including calcium and sodium. CKD with no evidence of decompensation.
Admitted for close monitoring.
MRI of the brain negative for acute abnormality
Mildly elevated TSH at 6 with pending free T4
B12 normal
Mental status improves.
Continue preadmission regimen including gabapentin, escitalopram, mirtazapine.
Okay to reintroduce hydrocodone for chronic cervical pain
Reported diarrhea, nausea vomiting upon presentation
Currently with no symptoms.
Abdominal examination benign.
Chronic neutropenia noted.
LFTs within normal limits.
Hold laxatives.
Observe.
Chronic kidney disease stage IIIb-IV.
Creatinine at 1.8.
Noted creatinine bump at 3.6 with transient hypotension responded to IV fluids overnight
BPH, status post TURP.
Noted episode of retention requiring Mccracken catheter and later successful trial of voiding.
Bladder scan and monitor for retention.
Continue Flomax
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
On anticoagulation with Eliquis
Regimen adjusted by renal clearance
Eczema/acne.
On Rinvoq and minocycline
CODE STATUS�full code.
Anticipated Discharge: 24 - 48 hours
Subjective/Interval History
-
Date of Service: January 21, 2025
Objective Data
-
Labs:
Laboratory Results
01/21/25
07:26
WBC 5.2
Hgb 10.5 L
Hct 31.2 L
Plt Count 156
Sodium 137
Potassium 3.8
Chloride 103
Carbon Dioxide 20 L
BUN 43 H
Creatinine 3.6 H
Glucose 123 H
Calcium 8.3 L
Vital Signs:
Vital Signs
Temp Pulse Resp BP Pulse Ox
97.7 F 78 22 143/94 99
01/21/25 13:04 01/21/25 11:00 01/21/25 11:00 01/21/25 11:00 01/21/25 13:09
I&O
01/20/25 01/21/25 01/22/25
06:59 06:59 06:59
Intake Total 240 / 240 1160 / 1160 660 / 660
Output Total 450 / 450
Balance 240 / 240 710 / 710 660 / 660
Physical Exam
-
General: Well Developed and No Apparent Distress
HEENT: Normocephalic, Atraumatic and Moist Mucous Membranes
Respiratory: Clear to Auscultation
Cardiac: Regular Rhythm and S1/S2; Negative Murmur, Rub or Gallop
GI: Soft, Nontender, Nondistended and Normal Bowel Sounds; Negative Organomegaly
Rectal: Deferred by Provider
Musculoskeletal: No Clubbing, No Cyanosis and No Edema
Skin: Negative Rash
Neuro: Awake, Alert, Oriented (Name and place) and Nonfocal/Grossly Intact
[2025-01-21] MEDS: REMERON 30 MG PO (21:26)
[2025-01-21] MEDS: FLOMAX 0.4 MG PO (21:26)
[2025-01-22] MEDS: NSS 1000 IV ×2 (02:25→15:00)
[2025-01-22 03:38] VITALS: BP 106/69
[2025-01-22] MEDS: SYNTHROID 50 MCG PO (06:15)
[2025-01-22 07:25] VITALS: BP 118/65
[2025-01-22 08:06] LABS: % Basophils 0.4 % (0-2); % Immature Granulocytes 0.2 % (0-0.5); % Lymphocytes 13.5 % (20.5-51.1); % Monocytes 16.7 % (1.7-9.3); % Neutrophils 66.2 % (42.2-75.2); Absolute Eosinophils 0.2 10^3/uL (0-0.7); Absolute Lymphocytes 0.7 10^3/uL (1.2-3.4); Absolute Monocytes 0.8 10^3/uL (0.1-0.6); Absolute Neutrophils 3.3 10^3/uL (1.4-6.5); Mean Corp Hgb Conc. 33.3 g/dL (33.0-37.0); Mean Corpuscular Hgb 32.7 pg (27.0-31.0); Mean Corpuscular Volume 98.2 fL (80.0-94.0); Mean Platelet Volume 10.2 fL (7.4-10.4); Nucleated Red Blood Cells % 0 % (-); Platelet Count 155 10^3/uL (130-400); Red Blood Cell Count 3.36 10^6/uL (4.70-6.10); Red Cell Dist. Width 13.5 % (11.5-14.5)
[2025-01-22 08:31] LABS: Blood Urea Nitrogen 41 mg/dl (9-20); Carbon Dioxide 18 mmol/L (22-30); Chloride 104 mmol/L (98-107); Estimated Creatinine Clearance 12 ml/min; Glucose 166 mg/dl (70-99); Potassium 3.9 mmol/L (3.5-5.1); Sodium 137 mmol/L (135-145); eGFR 14.59
[2025-01-22] MEDS: MINOCIN 100 MG PO (09:05)
[2025-01-22] MEDS: ELIQUIS 2.5 MG PO ×2 (09:05→21:48)
[2025-01-22] MEDS: LEXAPRO 20 MG PO (09:05)
[2025-01-22] MEDS: NEURONTIN 300 MG PO (09:06)
[2025-01-22] MEDS: VITAMIN D3 (cholecalciferol) 50 MCG PO (09:06)
[2025-01-22] MEDS: PROTONIX 40 MG PO (09:06)
[2025-01-22] MEDS: VITAMIN B-12 100 MCG PO (09:06)
[2025-01-22] MEDS: NORCO 5/325 2 TABLET PO (09:13)
[2025-01-22 11:06] VITALS: BP 104/64
--- NOTE | 2025-01-22 11:35 | PN.CDI ---
CDI
- -
CDI:
Physician Documentation Request
Admit Date: 01/19/25 11:41
Dear Doctor,
Please review the following and provide your response in the progress notes.
Clinical Indicators:
Pt admitted with altered mental status.
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
01/21 Progress note: 'Chronic kidney disease stage IIIb-IV.
Creatinine at 1.8.
Noted creatinine bump at 3.6 with transient hypotension responded to IV fluids overnight'
Laboratory Tests
01/18/25 01/21/25 01/22/25
22:12 07:26 07:50
Creatinine 1.8 H 3.6 H 3.8 H
eGFR 35.98 15.56 14.59
Clarify which of the following accurately represents the patient's renal status:
Acute renal failure on chronic kidney disease
CKD stage IIIb-IV only
Other
Criteria for AGUSTIN*
1 Increase in serum creatinine by > or = to 0.3 mg/dL (> or = to 26.5 micromol/L) within 48 hours, OR
2 Increase in serum creatinine to > or = to 1.5 times baseline, which is known or presumed to have occurred within 7 days, OR
3 Urine volume < 0.5 nL/kg/hour for six hours
Stages of Chronic Kidney Disease*
Level Description GFR
G1 Normal or High >90
G2 Mildly decreased 60-89
G3a Mildly to moderately decreased 45-59
G3b Moderately to severely decreased 30-44
G4 Severely decreased 15-29
G5 Kidney failure <15
Use of terms such as suspected, likely, concern for, or probable (associated with a specific diagnosis that is being evaluated, monitored, or treated as if it exists) are acceptable and can be coded in the inpatient setting, when documented at the
time of discharge.
Thank you,
Hope Claire RN, BSN
CDI Specialist
[place] [facility]
Please use your independent medical judgment in providing your response.
*Source: Kidney Disease: Improving Global Outcomes (KDIGO) 2012
--- NOTE | 2025-01-22 12:26 | CM ---
CM reviewed chart, reviewed with liaison from [facility], patient not stable for d/c at time time, will review with liaison tomorrow if patient stable/[facility] a bed. CM will continue to follow for all discharge planning needs.
Plan; [facility] when stable
[2025-01-22 12:52] LABS: Urine Sodium 13 mmol/L (30-90)
--- NOTE | 2025-01-22 14:43 | W.PN.HOSP.TC ---
Today's Communication/Plan
-
Mccracken catheter.
Monitor creatinine.
Adjust analgesic regimen
Physical therapy.
Patient's son updated over the phone
Assessment / Plan
Assessment / Plan
IMPRESSION:
Altered mental status with concern for encephalopathy.
Acute kidney injury
Acute on recurrent urinary retention
Other conditions:
Recent hospitalization to [facility] with fall, left-sided rib fractures, acute urinary retention.
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 Major depressive disorder
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
Eczema on Rinvoq therapy with chronic immunosuppression and neutropenia.
BPH status post TURP with prior history of retention.
Anemia of chronic disease
Hypothyroidism on replacement.
Diabetes type 2 by history not on any glucose lowering medications prior to presentation.
Nephropathy status
Status post TURP
Status post Hawa fundoplication
PLAN:
Altered mental status
Differential diagnosis metabolic encephalopathy versus CVA (less likely)
Patient with history of vascular dementia, although lives independently.
Reported decline of mental status over the period of last week.
Nontoxic-appearing
Neurologic exam with no focal findings
CT scan of the head with no acute abnormalities.
Electrolytes within normal limits including calcium and sodium. CKD with no evidence of decompensation.
Admitted for close monitoring.
MRI of the brain negative for acute abnormality
Mildly elevated TSH at 6 with pending free T4
B12 normal
Mental status improves.
Continue preadmission regimen including gabapentin, escitalopram, mirtazapine.
Okay to reintroduce hydrocodone for chronic cervical pain
Reported diarrhea, nausea vomiting upon presentation
Currently with no symptoms.
Abdominal examination benign.
Chronic neutropenia noted.
LFTs within normal limits.
Hold laxatives.
Observe.
Acute kidney injury
Chronic kidney disease stage IIIb-IV.
Creatinine at 1.8.
Creatinine up to 3.8.
Retention requiring straight catheterization.
Urine studies consistent with mild prerenal stimuli as well (urine sodium 13)
BPH, status post TURP.
Mccracken catheter to be placed on 01/22
Continue Flomax
Cervical DJD, severe with spinal stenosis
No focal findings on exam, although with persistent severe pain pain
Adjust analgesic regimen with transition to oral oxycodone. Current Neurontin. Dose adjusted to decreased renal clearance
Physical therapy
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
On anticoagulation with Eliquis
Regimen adjusted by renal clearance
Eczema/acne.
On Rinvoq and minocycline
CODE STATUS�full code.
Anticipated Discharge: 24 - 48 hours
Subjective/Interval History
-
Date of Service: January 22, 2025
Objective Data
-
Labs:
Laboratory Results
01/22/25
07:50
WBC 5.0
Hgb 11.0 L
Hct 33.0 L
Plt Count 155
Sodium 137
Potassium 3.9
Chloride 104
Carbon Dioxide 18 L
BUN 41 H
Creatinine 3.8 H
Glucose 166 H
Calcium 8.0 L
Vital Signs:
Vital Signs
Temp Pulse Resp BP Pulse Ox
97.8 F 101 18 104/64 95
01/22/25 11:06 01/22/25 11:06 01/22/25 11:06 01/22/25 11:06 01/22/25 11:06
I&O
01/21/25 01/22/25 01/23/25
06:59 06:59 06:59
Intake Total 1160 / 1160 2250 / 2250
Output Total 450 / 450 550 / 550
Balance 710 / 710 1700 / 1700
Physical Exam
-
General: Well Developed and No Apparent Distress
HEENT: Normocephalic, Atraumatic and Moist Mucous Membranes
Respiratory: Clear to Auscultation
Cardiac: Regular Rhythm and S1/S2; Negative Murmur, Rub or Gallop
GI: Soft, Nontender, Nondistended and Normal Bowel Sounds; Negative Organomegaly
Rectal: Deferred by Provider
Musculoskeletal: No Clubbing, No Cyanosis and No Edema
Skin: Negative Rash
Neuro: Awake, Alert, Oriented (Name and place) and Nonfocal/Grossly Intact
[2025-01-22] MEDS: ROXICODONE 10 MG PO ×2 (15:00→23:41)
[2025-01-22] MEDS: TYLENOL 1000 MG PO ×2 (15:00→21:48)
[2025-01-22] MEDS: NEURONTIN 100 MG PO ×2 (15:00→21:47)
[2025-01-22 15:32] VITALS: BP 105/61
[2025-01-22 16:51] VITALS: BP 107/53; BP 111/64; PULSE 96
[2025-01-22] MEDS: REMERON 30 MG PO (21:48)
[2025-01-22] MEDS: FLOMAX 0.4 MG PO (21:48)
[2025-01-22 23:10] VITALS: BP 118/61
[2025-01-23] MEDS: NSS 1000 IV (05:41)
[2025-01-23] MEDS: SYNTHROID 50 MCG PO (05:45)
[2025-01-23 07:35] VITALS: BP 108/67
[2025-01-23 08:01] LABS: % Basophils 0.5 % (0-2); % Eosinophils 4.3 % (0-6); % Immature Granulocytes 0.2 % (0-0.5); % Lymphocytes 16.9 % (20.5-51.1); % Monocytes 18.9 % (1.7-9.3); % Neutrophils 59.2 % (42.2-75.2); Absolute Eosinophils 0.2 10^3/uL (0-0.7); Absolute Lymphocytes 0.8 10^3/uL (1.2-3.4); Absolute Monocytes 0.8 10^3/uL (0.1-0.6); Absolute Neutrophils 2.6 10^3/uL (1.4-6.5); Hematocrit 30.9 % (39.0-52.0); Mean Corp Hgb Conc. 32.4 g/dL (33.0-37.0); Mean Corpuscular Hgb 32.2 pg (27.0-31.0); Mean Corpuscular Volume 99.4 fL (80.0-94.0); Mean Platelet Volume 10.2 fL (7.4-10.4); Nucleated Red Blood Cells % 0 % (-); Platelet Count 166 10^3/uL (130-400); Red Blood Cell Count 3.11 10^6/uL (4.70-6.10); Red Cell Dist. Width 13.6 % (11.5-14.5); White Blood Cell Count 4.4 10^3/uL (4.8-10.8)
[2025-01-23 08:32] LABS: Blood Urea Nitrogen 46 mg/dl (9-20); Calcium 7.4 mg/dl (8.4-10.2); Carbon Dioxide 18 mmol/L (22-30); Chloride 109 mmol/L (98-107); Estimated Creatinine Clearance 13 ml/min; Glucose 108 mg/dl (70-99); Potassium 4.3 mmol/L (3.5-5.1); Sodium 140 mmol/L (135-145); eGFR 16.67
[2025-01-23] MEDS: ELIQUIS 2.5 MG PO ×2 (08:57→19:52)
[2025-01-23] MEDS: LEXAPRO 20 MG PO (08:57)
[2025-01-23] MEDS: TYLENOL 1000 MG PO ×3 (08:58→21:55)
[2025-01-23] MEDS: MINOCIN 100 MG PO (08:58)
[2025-01-23] MEDS: PROTONIX 40 MG PO (08:58)
[2025-01-23] MEDS: VITAMIN B-12 100 MCG PO (08:58)
[2025-01-23] MEDS: NEURONTIN 100 MG PO ×3 (08:58→21:55)
[2025-01-23] MEDS: VITAMIN D3 (cholecalciferol) 50 MCG PO (08:58)
[2025-01-23] MEDS: ROXICODONE 10 MG PO ×2 (11:38→19:52)
--- NOTE | 2025-01-23 12:04 | CM ---
CM reviewed chart, reviewed with Hospitalist and nurse. Per liaison at [facility], will have a rehab bed tomorrow for patient. Will need Covid test prior to d/c. Nasima, liaison reports she will be working weekend and CM can contact her tomorrow
to confirm d/c plan. CM will continue to follow for all discharge planning needs.
Plan; [facility], likely tomorrow.
[facility]
Report: [phone]
[2025-01-23] MEDS: NSS IV (14:34)
[2025-01-23 15:26] VITALS: BP 134/80
--- NOTE | 2025-01-23 16:17 | W.PN.HOSP.TC ---
Today's Communication/Plan
-
Mental status stable and close to baseline
Chronic cervical spine pain better controlled with transition to oxycodone
Continue Neurontin, consider increased dose if renal function improves.
Mccracken catheter placed for acute retention on 01/22 with now creatinine trending down
Stop IV fluids.
Follow BMP.
Plan is to discharge to rehab with Mccracken catheter in place once creatinine below 3.
Assessment / Plan
Assessment / Plan
IMPRESSION:
Altered mental status with concern for encephalopathy.
Acute kidney injury
Acute on recurrent urinary retention
Other conditions:
Recent hospitalization to [facility] with fall, left-sided rib fractures, acute urinary retention.
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 Major depressive disorder
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
Eczema on Rinvoq therapy with chronic immunosuppression and neutropenia.
BPH status post TURP with prior history of retention.
Anemia of chronic disease
Hypothyroidism on replacement.
Diabetes type 2 by history not on any glucose lowering medications prior to presentation.
Nephropathy status
Status post TURP
Status post Hawa fundoplication
PLAN:
Altered mental status
Differential diagnosis metabolic encephalopathy versus CVA (less likely)
Patient with history of vascular dementia, although lives independently.
Reported decline of mental status over the period of last week.
Nontoxic-appearing
Neurologic exam with no focal findings
CT scan of the head with no acute abnormalities.
Electrolytes within normal limits including calcium and sodium. CKD with no evidence of decompensation.
Admitted for close monitoring.
MRI of the brain negative for acute abnormality
Mildly elevated TSH at 6 with pending free T4
B12 normal
Mental status improves.
Continue preadmission regimen including gabapentin, escitalopram, mirtazapine.
Okay to reintroduce hydrocodone for chronic cervical pain
Reported diarrhea, nausea vomiting upon presentation
Currently with no symptoms.
Abdominal examination benign.
Chronic neutropenia noted.
LFTs within normal limits.
Hold laxatives.
Observe.
Acute kidney injury
Chronic kidney disease stage IIIb-IV.
Creatinine at 1.8.
Creatinine up to 3.8.
Retention requiring straight catheterization.
Urine studies consistent with mild prerenal stimuli as well (urine sodium 13)
BPH, status post TURP.
Mccracken catheter placed on 01/22
Creatinine improving down to 3.6
Continue Flomax
Cervical DJD, severe with spinal stenosis
No focal findings on exam, although with persistent severe pain pain
Adjust analgesic regimen with transition to oral oxycodone. Current Neurontin. Dose adjusted to decreased renal clearance
Physical therapy
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
On anticoagulation with Eliquis
Regimen adjusted by renal clearance
Eczema/acne.
On Rinvoq and minocycline
CODE STATUS�full code.
Anticipated Discharge: 24 - 48 hours
Subjective/Interval History
-
Date of Service: January 23, 2025
Objective Data
-
Labs:
Laboratory Results
01/23/25
07:20
WBC 4.4 L
Hgb 10.0 L
Hct 30.9 L
Plt Count 166
Sodium 140
Potassium 4.3
Chloride 109 H
Carbon Dioxide 18 L
BUN 46 H
Creatinine 3.4 H
Glucose 108 H
Calcium 7.4 L
Vital Signs:
Vital Signs
Temp Pulse Resp BP Pulse Ox
97.7 F 96 20 134/80 97
01/23/25 15:26 01/23/25 15:26 01/23/25 15:26 01/23/25 15:26 01/23/25 15:26
I&O
01/22/25 01/23/25 01/24/25
06:59 06:59 06:59
Intake Total 2250 / 2250 1780 / 1780
Output Total 550 / 550 900 / 900
Balance 1700 / 1700 880 / 880
Physical Exam
-
General: Well Developed and No Apparent Distress
HEENT: Normocephalic, Atraumatic and Moist Mucous Membranes
Respiratory: Clear to Auscultation
Cardiac: Regular Rhythm and S1/S2; Negative Murmur, Rub or Gallop
GI: Soft, Nontender, Nondistended and Normal Bowel Sounds; Negative Organomegaly
Rectal: Deferred by Provider
Musculoskeletal: No Clubbing, No Cyanosis and No Edema
Skin: Negative Rash
Neuro: Awake, Alert, Oriented (Name and place) and Nonfocal/Grossly Intact
[2025-01-23] MEDS: FLOMAX 0.4 MG PO (21:55)
[2025-01-23] MEDS: REMERON 30 MG PO (21:58)
[2025-01-23 23:36] VITALS: BP 126/71
[2025-01-24] MEDS: SYNTHROID 50 MCG PO (06:01)
[2025-01-24 07:00] VITALS: BP 149/73
[2025-01-24] MEDS: VITAMIN D3 (cholecalciferol) 50 MCG PO (08:51)
[2025-01-24] MEDS: PROTONIX 40 MG PO (08:51)
[2025-01-24] MEDS: TYLENOL 1000 MG PO ×2 (08:51→16:03)
[2025-01-24] MEDS: MINOCIN 100 MG PO (08:51)
[2025-01-24] MEDS: VITAMIN B-12 100 MCG PO (08:51)
[2025-01-24] MEDS: LEXAPRO 20 MG PO (08:51)
[2025-01-24] MEDS: NEURONTIN 100 MG PO ×3 (08:51→21:26)
[2025-01-24] MEDS: ELIQUIS 2.5 MG PO ×2 (08:51→21:26)
[2025-01-24] MEDS: ROXICODONE 10 MG PO ×3 (09:38→21:26)
[2025-01-24 09:59] LABS: Blood Urea Nitrogen 45 mg/dl (9-20); Calcium 8.2 mg/dl (8.4-10.2); Carbon Dioxide 21 mmol/L (22-30); Chloride 111 mmol/L (98-107); Estimated Creatinine Clearance 16 ml/min; Glucose 109 mg/dl (70-99); Iron 43 ug/dl (49-181); Potassium 4.9 mmol/L (3.5-5.1); Sodium 142 mmol/L (135-145); eGFR 20.17
[2025-01-24 10:08] LABS: Percent Saturation 17 % (20-50); Total Iron Binding Capacity 252 ug/dl (261-462)
[2025-01-24 10:13] LABS: Vitamin D, 25-OH*** 54.3 ng/mL (30-80)
--- NOTE | 2025-01-24 11:22 | W.PN.HOSP.TC ---
Today's Communication/Plan
-
follow creat
possible discharge tomorrow if trending down
Assessment / Plan
Assessment / Plan
89-year-old man with mild dementia with mental status change. Had episode of gastroenteritis with diarrhea which led to dehydration
CVS: S1-S2 normal
Chest: CTA B/L
Abdomen: Soft, NT / Bowel sounds present
Extremities: No edema
[employer]: pleasant awake and alert
# Change in mental status
Encephalopathy secondary to AGUSTIN
Back to baseline
MRI of the brain negative for acute changes
# Acute kidney injury
Prerenal and postrenal reasons
CKD stage III-IV
BPH with history of TURP
Baseline creatinine 1.8, was up to 3.8 on admission
Today it is 2.9
Likely prerenal reasons because of recent diarrhea and GI losses
Mccracken catheter placed
Continue Flomax
# Recent diarrhea nausea and vomiting-resolved
# Anemia likely secondary to CKD. Check iron studies.
# Hypothyroidism -mildly elevated TSH. Normal T4-continue 50 mcg of Synthroid. Rpt TSH in 4 weeks
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
# Depression-continue Lexapro, Remeron
# Diet-controlled diabetes-sugars are stable. Hemoglobin A1c 5.9 on 01/18/2025
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
# GERD-continue PPI
# History of DVT and PE-continue Eliquis
# History of lung nodule-outpatient follow-up
# Eczema/acne-continue Rinvoq and minocycline
# Ex-smoker
# Full code
D/W Case management
D/W RN at bed side
Part of this note was created using voice recognition system. Occasional wrong word or��sound alike� substitutions may have inadvertently occurred due to the inherent limitations of voice recognition software. If noted kindly bring it to my
attention for correction.
Anticipated Discharge: Within 24 hours
Subjective/Interval History
-
Date of Service: January 24, 2025
Objective Data
-
Labs:
Laboratory Results
01/24/25
09:01
Sodium 142
Potassium 4.9
Chloride 111 H
Carbon Dioxide 21 L
BUN 45 H
Creatinine 2.9 H
Glucose 109 H
Calcium 8.2 L
Vital Signs:
Vital Signs
Temp Pulse Resp BP Pulse Ox
97.9 F 92 18 149/73 98
01/24/25 07:00 01/24/25 07:00 01/24/25 07:00 01/24/25 07:00 01/24/25 07:00
I&O
01/23/25 01/24/25 01/25/25
06:59 06:59 06:59
Intake Total 1780 / 1780 1999 / 1999
Output Total 900 / 900 1400 / 1400
Balance 880 / 880 600 / 600
[2025-01-24] MEDS: MIRALAX 17 GRAMS PO (12:06)
[2025-01-24] MEDS: FEOSOL 325 MG PO (12:06)
[2025-01-24 15:00] VITALS: BP 112/69
--- NOTE | 2025-01-24 18:38 | PTCARENOTE ---
Patient had moderate to severe pain throughout the day. Will keep overnight to see what am creatinine is tomorrow. Plan of care ongoing.
[2025-01-24] MEDS: FLOMAX 0.4 MG PO (21:26)
[2025-01-24] MEDS: REMERON 30 MG PO (21:26)
[2025-01-24] MEDS: TYLENOL PO (22:23)
[2025-01-24 23:06] VITALS: BP 132/71
[2025-01-25] MEDS: SYNTHROID 50 MCG PO (06:20)
[2025-01-25 07:00] VITALS: BP 151/89
[2025-01-25] MEDS: VITAMIN B-12 100 MCG PO (09:26)
[2025-01-25] MEDS: MINOCIN 100 MG PO (09:26)
[2025-01-25] MEDS: ELIQUIS 2.5 MG PO ×2 (09:27→20:03)
[2025-01-25] MEDS: VITAMIN D3 (cholecalciferol) 50 MCG PO (09:27)
[2025-01-25] MEDS: TYLENOL 1000 MG PO ×3 (09:27→21:17)
[2025-01-25] MEDS: PROTONIX 40 MG PO (09:27)
[2025-01-25] MEDS: NEURONTIN 100 MG PO ×3 (09:27→21:17)
[2025-01-25] MEDS: FEOSOL 325 MG PO (09:27)
[2025-01-25] MEDS: LEXAPRO 20 MG PO (09:27)
[2025-01-25] MEDS: MIRALAX 17 GRAMS PO (09:28)
[2025-01-25] MEDS: ROXICODONE 10 MG PO (10:18)
[2025-01-25 11:38] LABS: Blood Urea Nitrogen 44 mg/dl (9-20); Calcium 8.7 mg/dl (8.4-10.2); Carbon Dioxide 25 mmol/L (22-30); Chloride 111 mmol/L (98-107); Estimated Creatinine Clearance 18 ml/min; Glucose 149 mg/dl (70-99); Potassium 4.6 mmol/L (3.5-5.1); Sodium 143 mmol/L (135-145)
--- NOTE | 2025-01-25 13:00 | CM ---
Addendum entered by Radha Campbell 01/25/25 15:01:
D/c held, update to Nasima at [facility], patients son aware.
Original Note:
CM reviewed chart, patient for discharge today to [facility], confirmed with liaison ability to accept. Patient scheduled for 3:00-3:30 p.m. ambulance transport. IMM verbally reviewed with son, Albaro, agreeable to discharge, placed in chart.
Son reports he will provide patients Rinvoq to [facility]. Covid ordered. CM will continue to follow for all discharge planning needs.
Plan; [facility], 3:00/3:30 p.m. ambulance transport
[facility]
Report: [phone]
[2025-01-25 13:27] VITALS: BP 103/62
[2025-01-25 13:55] LABS: COVID-19 Antigen Negative (Negative)
[2025-01-25] MEDS: DULCOLAX 10 MG RECTAL (14:36)
[2025-01-25] MEDS: MILK OF MAGNESIA 30 ML PO (14:36)
[2025-01-25] MEDS: SENOKOT 8.6 MG PO ×2 (14:37→20:03)
--- NOTE | 2025-01-25 14:40 | W.PN.HOSP.TC ---
Today's Communication/Plan
-
Treat constipation
OOB to chair
Once has a BM can be discharged
Assessment / Plan
Assessment / Plan
89-year-old man with mild dementia with mental status change. Had episode of gastroenteritis with diarrhea which led to dehydration
CVS: S1-S2 normal
Chest: CTA B/L
Abdomen: Soft, NT ,mild distension, Bowel sounds present
Extremities: No edema
REVENUE DIRECTOR: pleasant awake and alert
# Change in mental status
Encephalopathy secondary to AGUSTIN
Back to baseline
MRI of the brain negative for acute changes
# Acute kidney injury
Prerenal and postrenal reasons
CKD stage III-IV
BPH with history of TURP
Baseline creatinine 1.8, was up to 3.8 on admission
Today it is 2.6
Likely prerenal reasons because of recent diarrhea and GI losses
Mccracken catheter placed
Continue Flomax
# Recent diarrhea -resolved
I think he has chronic constipation due to Narcs. His Diarrhea was likely from constipation.
Added Bowel regimen
Should take bowel regimen daily. ( D/W SOn)
# Anemia likely secondary to CKD. Check iron studies.
# Hypothyroidism -mildly elevated TSH. Normal T4-continue 50 mcg of Synthroid. Rpt TSH in 4 weeks
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
# Depression-continue Lexapro, Remeron
# Diet-controlled diabetes-sugars are stable. Hemoglobin A1c 5.9 on 01/18/2025
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
# GERD-continue PPI
# History of DVT and PE-continue Eliquis
# History of lung nodule-outpatient follow-up
# Eczema/acne-continue Rinvoq and minocycline
# Ex-smoker
# Full code
D/W Case management
D/W RN at bed side
D/W Son Dr.Sisack and updated.
Part of this note was created using voice recognition system. Occasional wrong word or��sound alike� substitutions may have inadvertently occurred due to the inherent limitations of voice recognition software. If noted kindly bring it to my
attention for correction.
Anticipated Discharge: Within 24 hours
Subjective/Interval History
-
Date of Service: January 25, 2025
Objective Data
-
Labs:
Laboratory Results
01/25/25
11:06
Sodium 143
Potassium 4.6
Chloride 111 H
Carbon Dioxide 25
BUN 44 H
Creatinine 2.6 H
Glucose 149 H
Calcium 8.7
Vital Signs:
Vital Signs
Temp Pulse Resp BP Pulse Ox
98.3 F 82 18 103/62 96
01/25/25 13:27 01/25/25 13:27 01/25/25 13:27 01/25/25 13:27 01/25/25 13:27
I&O
01/24/25 01/25/25 01/26/25
06:59 06:59 06:59
Intake Total 2000 / 1999 240 / 240
Output Total 1400 / 1400 1300 / 1300 300 / 300
Balance 600 / 600 -1060 / -1060 -300 / -300
[2025-01-25 15:00] VITALS: BP 162/85
[2025-01-25] MEDS: REMERON 30 MG PO (21:16)
[2025-01-25] MEDS: FLOMAX 0.4 MG PO (21:17)
[2025-01-25 23:30] VITALS: BP 158/80
[2025-01-26] MEDS: SYNTHROID 50 MCG PO (05:26)
[2025-01-26 07:45] VITALS: BP 155/78
[2025-01-26] MEDS: LEXAPRO 20 MG PO (08:04)
[2025-01-26] MEDS: PROTONIX 40 MG PO (08:04)
[2025-01-26] MEDS: VITAMIN B-12 100 MCG PO (08:04)
[2025-01-26] MEDS: NEURONTIN 100 MG PO ×3 (08:04→19:54)
[2025-01-26] MEDS: MINOCIN 100 MG PO (08:04)
[2025-01-26] MEDS: FEOSOL 325 MG PO (08:04)
[2025-01-26] MEDS: ELIQUIS 2.5 MG PO ×2 (08:05→19:54)
[2025-01-26] MEDS: VITAMIN D3 (cholecalciferol) 50 MCG PO (08:05)
[2025-01-26] MEDS: TYLENOL 1000 MG PO ×3 (08:05→19:53)
[2025-01-26] MEDS: SENOKOT 8.6 MG PO (08:05)
[2025-01-26] MEDS: MIRALAX 17 GRAMS PO (08:05)
[2025-01-26 09:04] LABS: Blood Urea Nitrogen 40 mg/dl (9-20); Carbon Dioxide 23 mmol/L (22-30); Chloride 110 mmol/L (98-107); Estimated Creatinine Clearance 20 ml/min; Glucose 136 mg/dl (70-99); Potassium 5.3 mmol/L (3.5-5.1); Sodium 142 mmol/L (135-145); eGFR 26.64
[2025-01-26 11:46] VITALS: BP 122/83; PULSE 89; O2SAT 98
--- NOTE | 2025-01-26 12:59 | CM ---
Chart reviewed and patient is not cleared for discharge, update provided to admissions at [facility], and updated clinical sent though [employer].
[facility]
Report: [phone]

Plan; Skilled placement at [facility] when stable.
[2025-01-26 15:16] VITALS: BP 137/72
--- NOTE | 2025-01-26 16:42 | W.PN.HOSP.TC ---
Today's Communication/Plan
-
Creatinine improved to close to baseline with decompression with Mccracken catheter and hydration
Establish bowel regimen. Today with multiple loose stools. Continue stool softener and hold laxatives.
Pain better managed with adjusted medication regimen.
Discharge planning
Assessment / Plan
Assessment / Plan
IMPRESSION:
Altered mental status with concern for encephalopathy.
Acute kidney injury
Acute on recurrent urinary retention
Other conditions:
Recent hospitalization to [facility] with fall, left-sided rib fractures, acute urinary retention.
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 Major depressive disorder
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
Eczema on Rinvoq therapy with chronic immunosuppression and neutropenia.
BPH status post TURP with prior history of retention.
Anemia of chronic disease
Hypothyroidism on replacement.
Diabetes type 2 by history not on any glucose lowering medications prior to presentation.
Nephropathy status
Status post TURP
Status post Hawa fundoplication
PLAN:
Altered mental status
Differential diagnosis metabolic encephalopathy versus CVA (less likely)
Patient with history of vascular dementia, although lives independently.
Reported decline of mental status over the period of last week.
Nontoxic-appearing
Neurologic exam with no focal findings
CT scan of the head with no acute abnormalities.
Electrolytes within normal limits including calcium and sodium. CKD with no evidence of decompensation.
Admitted for close monitoring.
MRI of the brain negative for acute abnormality
Mildly elevated TSH at 6 with pending free T4
B12 normal
Mental status improves.
Continue preadmission regimen including gabapentin, escitalopram, mirtazapine.
Okay to reintroduce hydrocodone for chronic cervical pain
Reported diarrhea, nausea vomiting upon presentation
Currently with no symptoms.
Abdominal examination benign.
Later constipated placed on bowel regimen
Chronic neutropenia noted.
LFTs within normal limits.
Hold laxatives.
Observe.
Acute kidney injury
Chronic kidney disease stage IIIb-IV.
Creatinine at 1.8.
Creatinine up to 3.8.
Retention requiring straight catheterization.
Urine studies consistent with mild prerenal stimuli as well (urine sodium 13)
BPH, status post TURP.
Mccracken catheter to be placed on 01/22
Continue Flomax
Cervical DJD, severe with spinal stenosis
No focal findings on exam, although with persistent severe pain pain
Adjust analgesic regimen with transition to oral oxycodone. Current Neurontin. Dose adjusted to decreased renal clearance
Physical therapy
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
On anticoagulation with Eliquis
Regimen adjusted by renal clearance
Eczema/acne.
On Rinvoq and minocycline
Anticipated Discharge: Within 24 hours
Subjective/Interval History
-
Date of Service: January 26, 2025
Objective Data
-
Labs:
Laboratory Results
01/26/25
07:30
Sodium 142
Potassium 5.3 H
Chloride 110 H
Carbon Dioxide 23
BUN 40 H
Creatinine 2.3 H
Glucose 136 H
Calcium 9.0
Vital Signs:
Vital Signs
Temp Pulse Resp BP Pulse Ox
100 F 99 20 137/72 97
01/26/25 15:16 01/26/25 15:16 01/26/25 15:16 01/26/25 15:16 01/26/25 15:35
I&O
01/25/25 01/26/25 01/27/25
06:59 06:59 06:59
Intake Total 240 / 240
Output Total 1300 / 1300 1350 / 1350
Balance -1060 / -1060 -1350 / -1350
Physical Exam
-
General: Well Developed and No Apparent Distress
HEENT: Normocephalic, Atraumatic and Moist Mucous Membranes
Respiratory: Clear to Auscultation
Cardiac: Regular Rhythm and S1/S2; Negative Murmur, Rub or Gallop
GI: Soft, Nontender, Nondistended and Normal Bowel Sounds; Negative Organomegaly
Rectal: Deferred by Provider
Musculoskeletal: No Clubbing, No Cyanosis and No Edema
Skin: Negative Rash
Neuro: Awake, Alert, Oriented (Name and place) and Nonfocal/Grossly Intact
[2025-01-26] MEDS: REMERON 30 MG PO (19:53)
[2025-01-26] MEDS: ROXICODONE 10 MG PO (19:54)
[2025-01-26] MEDS: FLOMAX 0.4 MG PO (19:54)
[2025-01-26 23:36] VITALS: BP 118/68
[2025-01-27] MEDS: SYNTHROID 50 MCG PO (05:14)
[2025-01-27 07:36] VITALS: BP 149/78
[2025-01-27 08:13] LABS: Blood Urea Nitrogen 42 mg/dl (9-20); Calcium 9.1 mg/dl (8.4-10.2); Carbon Dioxide 24 mmol/L (22-30); Chloride 114 mmol/L (98-107); Estimated Creatinine Clearance 22 ml/min; Glucose 137 mg/dl (70-99); Potassium 4.8 mmol/L (3.5-5.1); Sodium 143 mmol/L (135-145); eGFR 29.72
[2025-01-27] MEDS: MIRALAX PO ×2 (08:48→08:58)
[2025-01-27] MEDS: MINOCIN 100 MG PO (08:50)
[2025-01-27] MEDS: FEOSOL 325 MG PO (08:50)
[2025-01-27] MEDS: PROTONIX 40 MG PO (08:50)
[2025-01-27] MEDS: ELIQUIS 2.5 MG PO (08:50)
[2025-01-27] MEDS: NEURONTIN 100 MG PO (08:50)
[2025-01-27] MEDS: VITAMIN B-12 100 MCG PO (08:50)
[2025-01-27] MEDS: VITAMIN D3 (cholecalciferol) 50 MCG PO (08:50)
[2025-01-27] MEDS: TYLENOL 1000 MG PO (08:50)
[2025-01-27] MEDS: LEXAPRO 20 MG PO (08:50)
--- NOTE | 2025-01-27 09:13 | CM ---
CM reviewed chart, patient for discharge today to [facility], scheduled for 1:30 p.m. ambulance transport. Patient will need Covid test prior to d/c. Call to patients son, Albaro, provided update on d.c. IMM verbally reviewed, agreeable to
discharge, placed in chart. CM will continue to follow for all discharge planning needs.
Plan; [facility], 1:30 p.m. ambulance transport
[facility]
Report: [phone]
[2025-01-27 09:50] LABS: COVID-19 Antigen Negative (Negative)
--- NOTE | 2025-01-27 12:12 | W.DS.TRANS ---
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
-
Discharge Instructions:
Discharge Diagnosis/Procedures Encephalopathy secondary to AGUSTIN
AGUSTIN
CKD stage III 4
BPH
Anemia
Hypothyroidism
Cervical DJD with spinal stenosis
Depression
Diet-controlled diabetes
GERD
History of DVT and PE
Eczema
Diet 2 Gram Sodium
Activity As tolerated
Driving Restrictions No driving
Blood Work BMP in 2 days. Thyroid function test in 4 to 6
weeks
Other Services PT
Instructions:
Stand-Alone Forms:
Changes to Home Medications: No
Discharge Medications:
DC Medications w/original date entered in [employer]
mirtazapine 30 mg tablet 30 mg PO HS Mental Health/Anxiety 11/19/19
omeprazole 20 mg capsule,delayed release 20 mg PO DAILY Gastrointestinal Issue 11/19/19
cyanocobalamin (vitamin B-12) 500 mcg tablet (Vitamin B-12) 100 mcg PO DAILY Supplement 11/08/23
escitalopram oxalate 20 mg tablet 20 mg PO DAILY Mental Health/Anxiety 11/08/23
levocetirizine 5 mg tablet (Xyzal) 5 mg PO QPMPRN PRN allergies 11/08/23
levothyroxine 50 mcg tablet 50 mcg PO DAILY Thyroid 11/08/23
tamsulosin 0.4 mg capsule 0.4 mg PO HS Urinary Issue 11/08/23
upadacitinib 15 mg tablet,extended release 24 hr (Rinvoq) 15 mg PO DAILY janus kinase inhib 11/08/23
apixaban 5 mg tablet (Eliquis) 2.5 mg PO BID Blood Clot Prevention/Tx 01/19/25
gabapentin 300 mg capsule 300 mg PO BID Neurological Condition 01/19/25
minocycline 100 mg capsule 100 mg PO DAILY Infection 01/19/25
cholecalciferol (vitamin D3) 25 mcg (1,000 unit) tablet (Vitamin D3) 25 mcg PO DAILY Supplement #0 tabs 01/25/25
polyethylene glycol 3350 17 gram oral powder packet 17 g PO DAILY Constipation #30 ea 01/25/25
sennosides 8.6 mg tablet (senna) 8.6 mg PO BID Constipation #0 tabs 01/25/25
acetaminophen 500 mg tablet (Tylenol Extra Strength) 1,000 mg (2 x 500 mg) PO TID #60 tabs 01/27/25
docusate sodium 100 mg capsule 100 mg PO BID PRN Constipation #0 caps 01/27/25
oxycodone 10 mg tablet 10 mg PO Q4HPRN PRN moderate pain #20 tabs 01/27/25
Home Medication Changes
Pending Results: No
[2025-01-27 13:34] VITALS: BP 123/73
== END 2025-01-27 14:33 | disposition home or self-care (01) | DRG 682 ==
LOC: 4 WEST ACU 11:41
PROVIDERS: Emergency Medicine; Hospitalist; Nurse Practitioner Family; ADMITTING PHYSICIAN Internal Medicine; EMERGENCY PHYSICIAN Emergency Medicine; FAMILY PHYSICIAN Internal Medicine
DX: N17.9 Acute kidney failure, unspecified (principal); G93.41 Metabolic encephalopathy; D84.821 Immunodeficiency due to drugs; K52.9 Noninfective gastroenteritis and colitis, unspecified; N18.4 Chronic kidney disease, stage 4 (severe); F01.50 Vascular dementia, unspecified severity, without behavioral disturbance, psychotic disturbance, mood disturbance, and anxiety; L30.9 Dermatitis, unspecified; N40.1 Benign prostatic hyperplasia with lower urinary tract symptoms; R33.8 Other retention of urine; D63.8 Anemia in other chronic diseases classified elsewhere; E03.9 Hypothyroidism, unspecified; E11.22 Type 2 diabetes mellitus with diabetic chronic kidney disease; G89.29 Other chronic pain; M47.812 Spondylosis without myelopathy or radiculopathy, cervical region; E86.0 Dehydration; D70.9 Neutropenia, unspecified; K21.9 Gastro-esophageal reflux disease without esophagitis; F32.9 Major depressive disorder, single episode, unspecified; Z86.711 Personal history of pulmonary embolism; I12.9 Hypertensive chronic kidney disease with stage 1 through stage 4 chronic kidney disease, or unspecified chronic kidney disease; Z86.718 Personal history of other venous thrombosis and embolism; Z79.622 Long term (current) use of Janus kinase inhibitor
CPT/HCPCS: 70450; 70551; 74019; 80048; 80053; 81003; 81015; 82306; 82570; 82607; 82728; 82962; 83036; 83540; 83550; 84300; 84439; 84443; 85025; 85027; 87070; 87811; 97110; 97530; 99285

== ENCOUNTER 2025-05-01 19:42 | Inpatient (IN) | payer OTHER, SELFPAY ==
[2025-05-01] VITALS (13 sets, daily range): BP systolic 139–171; BP diastolic 83–132
[2025-05-01 15:11] LABS: Hematocrit 38.3 % (39.0-52.0); Hemoglobin 12.7 g/dL (13.0-18.0); Mean Corp Hgb Conc. 33.2 g/dL (33.0-37.0); Mean Corpuscular Volume 93.9 fL (80.0-94.0); Nucleated Red Blood Cells % 0 % (-); Platelet Count 225 10^3/uL (130-400); Red Cell Dist. Width 13.6 % (11.5-14.5)
--- NOTE | 2025-05-01 15:56 | ED.GENMED ---
History of Present Illness
General
Chief Complaint: Failure to Thrive
Source: patient, records and family
Exam Limitations: none
Time Seen by Provider: 05/01/25 15:14
Nursing documentation reviewed up to this point in time: agreed with
History of Present Illness
History of Present Illness:
89-year-old male with a past medical history as documented presents to the ER with his son from [facility] for evaluation of mental status change. Patient is limited historian due to baseline dementia and difficulty expressing himself today.
Chart review shows that he was admitted in January for change in mental status of unclear etiology�had MRI brain and extensive workup that revealed no clear cause. His son is at bedside and provides collateral history: He reports that over the past few
days patient has had increasing difficulty specifically with expressing himself which is unusual. Son says that he struggles to answer even basic questions which is not normal for him�son states as an example that yesterday patient said that he
needed to do something but could not say exactly what, ultimately soiled himself and son believes he was trying to express that he needed to go to the bathroom but could not do it. This is reportedly an acute exchange trouble shooter the past few days which
prompted family to have patient brought into the emergency room. Son also notes the patient has had decreased appetite recently. He did have some loose stools but no other acute issues noted over the past few days. No vomiting. No dark urine
noted. No cough or fever noted. When asked the patient how he is doing he cannot tell me�the best answer he can give me is 'my son is my wing man today.'
Past History
Past History
ED Past Medical History: Cancer (Skin CA), HTN, NIDDM (Managed with diet), Psychiatric (Depression) and Other (DVT, Headache, Renal calculus, Iron def anemia, Ulcerative colitis)
ED Past Surgical History: Orthopedic (Right shoulder Rotator cuff repair, Left knee replacement, Left hip replacement. ) and Other (Hiatal hernia repair at [place] last year, Parotid tumor removed, Detached retina, Lasik eye surgery, Hernia repair X
2)
Social History
Tobacco: Former smoker
Alcohol: Daily (1 [place] mist with sil jay)
Drug: None
Personal:
Living: assisted living ([facility])
Employment: Retired
Family History
Family History: Early CAD (Son with MS at 40 )
Review of Systems
Review of Systems
Unable to obtain full review of systems at this time due to: dementia
All Other Systems: Not applicable
Phy Exam
Physical Exam
Physical Exam:
General: Awake, alert, oriented x1; no acute distress
Head: Normocephalic, atraumatic
Eyes: Conjunctiva normal, EOMI, pupils equal round reactive to light bilaterally
Throat: Airway intact, handling secretions
Neck: Trachea midline, supple without meningismus
Lungs: Clear to auscultation bilaterally, no wheezing, rales, rhonchi
Heart: Regular rate and rhythm, no murmurs, gallops, or rubs appreciated
Abd: Soft, non distended, no apparent tenderness
Neuro: Cranial nerves intact, speech fluid without dysarthria, mild expressive aphasia, difficulty with two-step commands; motor and sensory is intact in the upper and lower extremities without drift
Skin: no rash
Extremities: No edema in extremities, equal pulses in all extremities
Scores
NIH Stroke Score
Level of Consciousness: 0 - Alert
LOC Questions: 1-Answers one correctly
LOC Commands: 1-Performs one correctly
Best Horizontal Gaze: 0-Normal
Visual Cotter: 0=Normal, no visual loss
Facial Palsy: 0=Normal, symmetrical
Motor - Right Arm: 0=No drift 10 seconds
Motor - Left Arm: 0=No drift 10 seconds
Motor - Right Le-No drift 5 seconds
Motor - Left Le-No drift 5 seconds
Limb Ataxia: 0-Absent
Sensation: 0-Normal
Best Language: 1-Mild aphasia
Dysarthria: 0-Normal
Extinction and Inattention: 0-No abnormality
NIH Total Score:: 3
Thrombolytic Contraindication
Inclusion and Exclusion criteria reviewed: Yes
Reasons for NON-Tx with Thrombolytics ABSOLUTE Exclusions: Greater than 4.5 hrs from onset of sxs
Heart Failure Risk
Heart Failure Risk Score: Not Applicable
Heart Score for Chest Pain Patients
STEMI patient?: Not applicable
Withdrawal Assessment of Alcohol
Withdrawal Assessment Completed?: Not applicable
Course
Orders/Labs/Results
Orders:
Orders
05/01/25 15:00
Cardiac Monitoring- Treatment ONCE
O2 Therapy [RESP] Urgent
Titrate/Wean O2 to maintain O2 sat greater than (%): 93
Special Instructions: TO MAINTAIN CONTINUOUS O2 SATS > OR = 93%
Pulse Ox/cont/shift [RESP] Urgent
Quantity: 1
Special Instructions: CONTINUOUS
05/01/25 15:02
Complete Blood Count/With Diff Urgent
Urinalysis Reflex To Culture Urgent
Date Specimen was Collected: 05/01/25
Time Specimen was Collected: 15:00
Urine Microscopic Reflex Cult Urgent
05/01/25 15:34
Electrocardiogram (*1) Urgent
Reason for Study: TIA/Stroke
CT Head & Neck Angio W/wo IV Urgent
Comment:
Reason For Exam: expressive aphasia, confusion
EKG- Treatment ONCE
CR Chest Portable - 1 View Urgent
Comment:
Reason For Exam: confusion
Reason Study Needs to be Portable: Unable to Transport
05/01/25 15:59
Comprehensive Metabolic Panel Urgent
05/01/25 16:43
0.9% Sodium Chloride 500 ml [Nss] 500 ml IV BOLUS
05/01/25 18:37
Aspirin 325 mg PO NOW STA
Abnormal Lab Results
05/01/25 05/01/25
15:02 15:59
RBC 4.08 L 10^6/uL
(4.70-6.10)
Hgb 12.7 L g/dL
(13.0-18.0)
Hct 38.3 L %
(39.0-52.0)
MCH 31.1 H pg
(27.0-31.0)
Absolute Lymphs (auto) 0.6 L 10^3/uL
(1.2-3.4)
Absolute Monos (auto) 0.7 H 10^3/uL
(0.1-0.6)
Lymphocytes % 12.6 L %
(20.5-51.1)
Monocytes % 13.9 H %
(1.7-9.3)
Potassium 5.5 H mmol/L
(3.5-5.1)
BUN 28 H mg/dl
(9-20)
Creatinine 1.6 H mg/dL
(0.7-1.3)
Glucose 122 H mg/dl
(70-99)
Albumin 5.1 H g/dl
(3.5-5.0)
Urine Ketones 2+ A
(Negative)
Ur Occult Blood Reflex 4+ A
(Negative)
Urine RBC 3-6 A /HPF
(0-2)
Urine Bacteria (Reflex) Few A
(Negative)
Urine Albumin (Reflex) 3+ A
(Neg - Trace)
05/01/25 15:02
05/01/25 15:59
Vital Signs
Initial and Last Documented VS:
Initial Vital Signs
Temp Pulse Resp Pulse Ox
37.2 C 91 21 99
05/01/25 14:47 05/01/25 14:47 05/01/25 14:47 05/01/25 14:47
Last Documented Vital Signs
Temp Pulse Resp BP Pulse Ox
37.2 C 91 25 161/110 95
05/01/25 14:47 05/01/25 18:30 05/01/25 18:30 05/01/25 18:30 05/01/25 18:30
MDM/Problems Addressed
Differential Diagnosis Includes:
Polypharmacy, delirium, progression of dementia symptoms, UTI, pneumonia, colitis, electrolyte derangement/renal failure, stroke
MDM/Problems Addressed:
89-year-old male presents for evaluation of change in mental status over the past few days�specifically is having trouble expressing himself also poor appetite. Only other symptom noted was some loose stools per son. Vitals and exam as above.
Certainly stroke and consideration however patient will outside the window for tenecteplase based on symptom onset. Plan to place an IV check labs including a CBC and a CMP, urinalysis. Will check chest x-ray and EKG. Will check CT head. Monitor
closely reassess after the above.
Labs reviewed: CBC shows marginal anemia, CMP shows stable CKD, marginal hyperkalemia. Urinalysis not clearly infected. Chest x-ray shows no pneumonia. CTA head and neck shows calcified plaque in the ICA but no LVO or other acute pathology.
Clinical status unchanged on reassessment. Certainly CVA still in the differential we will treat with aspirin. Will need admission for continued evaluation and monitoring. Discussed case with hospitalist for admission.
Chronic conditions affecting care:
Dementia
*Radiology
Radiology exam reviewed: radiology read reviewed
*Pulse Oximetry
SaO2: 99
Oxygen Mode of Delivery: Room air
Patient hypoxic: no (99%)
*EKG
Interpreted by ED Provider?: Yes
Heart Rate: 86
Rate: normal
Rhythm: sinus
[place]: left axis deviation
Interval: normal interval
QRS Pattern: other (Bifascicular block)
Ischemia: other (Septal infarct age undetermined)
*Critical Care Note
Total Time (30-74mins, 75-104mins- exclusive of procedures): Not Applicable
Data Reviewed
Review of Other/Old Records Reveals: Labs and Records
Source: patient, records and family
Patient Management
Discussion with other providers: Hospitalist (Discussed with hospitalist)
Escalation/DeEscalation of care consider admission/obs:
Admission indicated
ED Attending Note
-
Portions of this chart may have been created with voice recognition software.� Occasional wrong word or��sound alike� substitutions may have occurred due to the inherent limitations of voice recognition software.
Discharge Plan
Departure
Patient Disposition: Admit
Date of Disposition: 05/01/25
Time of Disposition: 18:38
Admit to doctor: Chen
Presentation/result/management discussed w/ accepting MD/DO: Hospitalist
Discharge Problem:
Altered mental status
Prescriptions:
No Action
mirtazapine 30 MG tablet
30 mg PO HS
omeprazole 20 MG capsule,delayed release(DR/EC)
20 mg PO DAILY
tamsulosin 0.4 mg capsule
0.4 mg PO HS
levothyroxine 50 mcg tablet
50 mcg PO DAILY
escitalopram oxalate 20 mg tablet
20 mg PO DAILY
Rinvoq 15 mg Tablet Extended Release 24 Hr
15 mg PO DAILY
cyanocobalamin (vitamin B-12) [Vitamin B-12] 500 mcg Tablet
100 mcg PO DAILY
levocetirizine [Xyzal] 5 mg Tablet
5 mg PO QPMPRN PRN (Reason: allergies)
minocycline 100 mg Capsule
100 mg PO DAILY
gabapentin 300 mg Capsule
300 mg PO BID
Eliquis 5 mg tablet
2.5 mg PO BID
Rx Instructions:
2 tabs (10mg) twice daily x 10 doses, then 1 tab (5mg) twice daily
polyethylene glycol 3350 17 gram Powder In Packet
17 g PO DAILY Qty: 30 0RF
sennosides [senna] 8.6 mg Tablet
8.6 mg PO BID Qty: 0 0RF
cholecalciferol (vitamin D3) [Vitamin D3] 25 mcg (1,000 unit) Tablet
25 mcg PO DAILY Qty: 0 0RF
acetaminophen [Tylenol Extra Strength] 500 mg Tablet
1,000 mg PO TID Qty: 60 0RF
oxycodone 10 mg Tablet
10 mg PO Q4HPRN PRN (Reason: moderate pain) Qty: 20 0RF
docusate sodium 100 mg Capsule
100 mg PO BID PRN (Reason: Constipation) Qty: 0 0RF
Referrals:
Randi Villarreal DO [Family Provider, Internal Medicine]
Interventions
Interventions:
*General Assessment Last Done: 05/01/25 14:47
*Neglect/Abuse Screening Last Done: 05/01/25 14:47
*ED- Fall Risk Assessment Last Done: 05/01/25 14:47
*ED COVID-19 Vaccine History Last Done: 05/01/25 14:47
Discharge Date and Time
Print Language: HEBREW
[2025-05-01 16:31] LABS: ALT (SGPT) 15 U/L (0-50); AST (SGOT) 32 U/L (17-59); Albumin 5.1 g/dl (3.5-5.0); Alkaline Phosphatase 87 U/L (38-126); Blood Urea Nitrogen 28 mg/dl (9-20); Calcium 9.6 mg/dl (8.4-10.2); Carbon Dioxide 22 mmol/L (22-30); Chloride 100 mmol/L (98-107); Glucose 122 mg/dl (70-99); Potassium 5.5 mmol/L (3.5-5.1); Sodium 135 mmol/L (135-145); Total Protein 7.6 g/dl (6.3-8.2); eGFR 41.19
[2025-05-01 17:09] LABS: Urine Character Clear (Clear)
[2025-05-01] MEDS: NSS 500 IV (17:13)
[2025-05-01 17:28] LABS: Urine White Cell 0-2 /HPF (0-5)
--- NOTE | 2025-05-01 18:51 | HPS.HSE ---
Family Physician
-
Family Physician: Randi Villarreal
Chief Complaint
-
AMS
History of Present Illness
This is 89-year-old male with past medical history significant for CKD, hypertension, hyperlipidemia, BPH, GERD, hypothyroid, history of DVT, dementia presenting to the emergency department with alteration in mental status.
According to family members that symptoms began about 20/2 days ago. He was in usual state of health with some baseline dementia at that time. At that time he had a normal appetite. Since then the patient has reduced appetite, he reports
difficulty expressing himself. Patient himself states that his mentation is foggy. They did not notice any focal logical deficits such as facial droop, dysarthria or aphasia. He denies any dizziness or lightheadedness. He denies any paresthesias
or focal weaknesses.
He has not been any medication changes. Did have incontinence of stool this a.m. but has not reported having diarrhea. He has not reported having any shortness of breath cough or fevers or chills. He denies any urinary symptoms.
Patient had a similar presentation in January and at that time had more of gastroenteritis picture with AGUSTIN and was thought to have metabolic encephalopathy. He had an MRI which shows no acute evidence of a stroke. He did recover back to his baseline
after being monitored in the hospital for few days.
In the emergency department patient was hypertensive with a blood pressure of 161/110, pulse rate of 91, temperature of 98 point pain oxygen saturation of 95% on room air. ECG shows a normal sinus rhythm at a rate of 86 with a left anterior
fascicular block and no acute ST or T wave changes.
Chest x-ray shows no acute disease.
A CT of the head and neck angiogram shows no acute interval changes. Severe origin of right ICA narrowing estimated at approximately 80% without calcified plaque. No occlusion or dissection otherwise noted. No acute intracranial stenosis
dissection or aneurysm.
CBC was unremarkable, electrolytes were stable except for a potassium of 5.5. BUN and creatinine were improved compared to prior at creatinine of 1.6. Glucose was normal at 128. LFTs were unremarkable. Urinalysis was negative.
Medical History
Past Medical History
Past Medical History: Reports Dementia, GERD, HTN, Hypercholesterolemia, Hypothyroidism and NIDDM
Additional Past Medical History:
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
Past Surgical History: Reports Other
Additional Past Surgical History:
Hawa fundoplication, parotid mass resection, TURP
Social History
Unable to obtain full social history at this time due to: Dementia
Tobacco: Non-smoker
Drug: None
Living: Assisted Living
Family History
Family History: Not pertinent
Allergies / Home Medications
Allergies reflects when Allergies were last updated in [employer].
Home Medications with original date entered in [employer]
Allergy/Medication List:
Allergies
Allergy/AdvReac Type Severity Reaction Status Date / Time
Penicillins Allergy Rash Verified 01/18/25 22:04
shellfish derived Allergy Nausea / Verified 01/18/25 22:04
Vomiting
Home Medications
mirtazapine 30 mg tablet 30 mg PO HS Mental Health/Anxiety 11/19/19
omeprazole 20 mg capsule,delayed release 20 mg PO DAILY Gastrointestinal Issue 11/19/19
cholecalciferol (vitamin D3) 25 mcg (1,000 unit) tablet (Vitamin D3) 50 mcg PO DAILY Supplement 11/08/23
cyanocobalamin (vitamin B-12) 500 mcg tablet (Vitamin B-12) 100 mcg PO DAILY Supplement 11/08/23
docusate sodium 100 mg capsule 100 mg PO BID Constipation 11/08/23
escitalopram oxalate 20 mg tablet 20 mg PO DAILY Mental Health/Anxiety 11/08/23
levocetirizine 5 mg tablet (Xyzal) 5 mg PO QPMPRN PRN allergies 11/08/23
levothyroxine 50 mcg tablet 50 mcg PO DAILY Thyroid 11/08/23
sennosides 8.6 mg tablet (senna) 8.6 mg PO DAILY Constipation 11/08/23
tamsulosin 0.4 mg capsule 0.4 mg PO HS Urinary Issue 11/08/23
upadacitinib 15 mg tablet,extended release 24 hr (Rinvoq) 15 mg PO DAILY janus kinase inhib 11/08/23
apixaban 5 mg tablet (Eliquis) 2.5 mg PO BID 01/19/25
gabapentin 300 mg capsule 300 mg PO BID 01/19/25
hydrocodone 10 mg-acetaminophen 325 mg tablet 1 tab PO TIDPRN PRN severe pain 01/19/25
minocycline 100 mg capsule 100 mg PO DAILY 01/19/25
Review of Systems
-
History Source: Patient and Family
Constitutional: Reports No Symptoms
EENT: Reports No Symptoms
Respiratory: Reports No Symptoms
Cardiac: Reports No Symptoms
Abdomen/GI: Reports No Symptoms
: Reports No Symptoms
Musculoskeletal: Reports No Symptoms
Skin: Reports No Symptoms
Neurological: Reports Weakness and Other (confusion)
Endocrine: Reports No Symptoms
Hematologic/Lymphatic: Reports No Symptoms
Psych: Reports No Symptoms
Physical Exam
Vital Signs
Vital Signs
Temp Pulse Resp BP Pulse Ox
98.9 F 91 25 161/110 95
05/01/25 14:47 05/01/25 18:30 05/01/25 18:30 05/01/25 18:30 05/01/25 18:30
Physical Exam
General: Other (Frail appearing 89-year-old, appears confused but in no acute distress.)
HEENT: NormoCephalic, Anicteric, Moist mucous membranes, Atraumatic and PERRLA; No Oxygen
Respiratory: Clear
Cardiac: S1/S2 and Regular Rhythm
Breast: Deferred by me
GI: Soft, Non Tender, Non Distended and Normal Bowel Sounds
Rectal: Deferred by Provider
Genito-urinary: Deferred by me
Musculoskeletal: No Clubbing, No Cyanosis and No Edema
Skin: Warm and Rash
Neuro: Alert, Oriented (Oriented to person only) and Nonfocal/grossly intact
Hematologic/Lymphatic: No Lymphadenopathy
Psych: Calm
Laboratory Results
-
05/01/25 15:02
05/01/25 15:59
Laboratory Results
Total Bilirubin 1.1 mg/dl (0.2-1.3) 05/01/25:59
AST 32 U/L (17-59) 05/01/25
ALT 15 U/L (0-50) 05/01/25
Alkaline Phosphatase 87 U/L (38-126) 05/01/25
Data Reviewed
-
Diagnostic Radiology: Report Reviewed by me
CT Scan: Report Reviewed by me
Medical Tests (Nuc Med, Echo, EKG etc): Image Personally Visualized and interpreted
Lab Data: Labs Reviewed by me
Old Records: Reviewed
Impression/Plan
-
IMPRESSION:
89-year-old male with past medical history of CKD, hypertension, hyperlipidemia, hypothyroid, right dermatitis for which he is on Rinvoq presenting to the emergency department with approximately 2 days of altered mental status typified by sensation
of confusion, memory difficulty, worsening ambulatory difficulty and loss of appetite. Patient has no focal deficits on examination. He does appear confused in a generalized way with difficulty recollecting any memory and he is only alert and and
oriented x 1. He is able to follow commands appropriately but requires redirection frequently. Workup in the ED was negative for acute stroke on CT of the head, and no acute vascular abnormalities noted on the CT angio except for a origin of right
ICA stenosis. No evidence of acute infectious process with clear chest x-ray, no history of cough fevers or chills or urinary symptoms or GI symptoms. His labs were unremarkable and seems to be at baseline compared to prior. UA was negative. At
this time suspect possibility of a subacute stroke.
PLAN:
1. Altered mental state - Subacute stroke versus metabolic encephalopathy (etiology uncertain). Similar presentation as prior.
- admit to telemetry
- mri brain in am
- neurochecks q 6
- check covid, tsh, rpr, b12
- hold gabapentin and rinvoq
- continue ppx eliquis
- will continue his usual pain regimen prn
- continue mirtazapine and escitalopram
- neurology consult
2. ICA stenosis - No calcified plaque, possible etiology of TIA but no focal findings
- neuro consult
- lipid panel check
- asa 325 x 1 given in ED
DVT PPX - on apixaban
code Status - Full Code
[2025-05-01] MEDS: ASPIRIN 325 MG PO (18:55)
[2025-05-01 19:58] LABS: COVID-19 Antigen Negative (Negative)
[2025-05-01] MEDS: FLOMAX 0.4 MG PO (22:52)
[2025-05-01] MEDS: ELIQUIS 2.5 MG PO (22:52)
[2025-05-01] MEDS: REMERON 30 MG PO (22:53)
[2025-05-02] VITALS (8 sets, daily range): BP systolic 125–148; BP diastolic 63–97; PULSE 94; O2SAT 98
[2025-05-02] MEDS: SYNTHROID 50 MCG PO (05:38)
--- NOTE | 2025-05-02 06:00 | PTCARENOTE ---
05/01: Pt arrived to floor via stretcher and transferred to bed. Pt pleasantly confused, AO to self only. NIHS 4, passed swallow screen. Tele # [phone]. VSS. Pt placed near nurses station and on bed alarm for safety, call eldridge within reach. Will review
chart and follow plan of care.
[2025-05-02 07:05] LABS: Hematocrit 33.4 % (39.0-52.0); Hemoglobin 11.4 g/dL (13.0-18.0); Mean Corp Hgb Conc. 34.1 g/dL (33.0-37.0); Mean Corpuscular Volume 92.3 fL (80.0-94.0); Platelet Count 206 10^3/uL (130-400); Red Cell Dist. Width 13.6 % (11.5-14.5)
[2025-05-02 07:36] LABS: Blood Urea Nitrogen 29 mg/dl (9-20); Calcium 9.5 mg/dl (8.4-10.2); Carbon Dioxide 22 mmol/L (22-30); Chloride 101 mmol/L (98-107); Glucose 109 mg/dl (70-99); HDL Cholesterol 95 mg/dl; LDL Cholesterol, Calculated 95 mg/dl; Magnesium 0.9 mg/dl (1.6-2.3); Potassium 4.5 mmol/L (3.5-5.1); Sodium 136 mmol/L (135-145); Very Low Density Lipoprotein 38 mg/dl (0-30); eGFR 38.30
[2025-05-02] MEDS: LEXAPRO 20 MG PO (07:50)
[2025-05-02] MEDS: ELIQUIS 2.5 MG PO ×2 (07:50→21:43)
[2025-05-02] MEDS: VITAMIN B-12 500 MCG PO (07:50)
[2025-05-02] MEDS: PROTONIX 40 MG PO (07:50)
[2025-05-02] MEDS: SENOKOT 8.6 MG PO (07:50)
[2025-05-02] MEDS: VITAMIN D3 (cholecalciferol) 25 MCG PO (07:50)
[2025-05-02 08:13] LABS: Glucose - Point of Care 108 mg/dl (70-99)
[2025-05-02 08:18] LABS: Vitamin B12 992 pg/ml (239-931)
[2025-05-02] MEDS: NOVOLOG FLEXPEN-LOW RESISTANCE SC ×2 (09:03→15:47)
[2025-05-02] MEDS: MAGNESIUM SULFATE 100 IV (09:35)
--- NOTE | 2025-05-02 10:33 | PTOTSP ---
Speech therapy
Presentation: Patient's verbal output was limited in length (likely related to his dementia dx) but patient was oriented to self (first name only) and followed commands with minimal cuing from [employer].
Swallowing Function: Patient was observed with several bites of puree and regular consistency solids with sips of thin liquids in which patient appeared to tolerate as he did not exhibit any overt clinical s/sx of aspiration or difficulty with
mastication/ manipulation. Patient required some assistance with feed and would like benefit from assistance/ supervision d/t impulsivity. Patient denied any dysphagia complaints.
Recommendations:
1) Regular consistency solids and thin liquids
2) Aspiration and reflux precautions
3) Medications as tolerated
4) Assistance/ supervision with PO given confusion and impulsivity
Plan: [employer] will continue to follow to ensure tolerance given his cofnusion; pending hospitalization.
[2025-05-02 11:11] LABS: Glycohemoglobin (HgbA1c) 5.8 % (4.0-5.6)
--- NOTE | 2025-05-02 11:53 | W.PN.HOSP.TC ---
Today's Communication/Plan
-
see note
Assessment / Plan
Assessment / Plan
1. Acute toxic metabolic encephalopathy
Suspected dementia
-Underlying dementia with aggravated symptoms likely from uncontrolled hypothyroidism versus medication side effect
- MRI brain done today and result is pending
- COVID check negative. RPR serology pending. B12 within normal limit
- TSH elevated approximately 10, free T4 within normal limit. will increase levothyroxine dose
- On norco for chronic pain relieve. Also on gabapentin for neuropathy. Remeron is anticholinergic in nature can cause daytime symptoms, will hold.
- Continue supportive care
2. Right ICA stenosis
- CTA showing 80% stenosis on right ICA
- Will await neuro input
3. History of DVT/PE
- Continue on home dose of Eliquis
4. CKD stage IIIb/IV
- Creatinine is close to baseline
- Avoid nephrotoxic medication
5. Type 2 diabetes mellitus
- last a1c of 5.8 on chart review
- not on any anti-diabetic meds, monitor
Chronic anemia
GERD
Essential hypertension
Hyperlipidemia
DVTPPX - eliquis
Full code
Total time spent : 54 mins
I personally saw and examined the patient.
I have reviewed all diagnostic interpretations and treatment plans as written.
Time includes patient management by me, time spent at the patients bedside, time to review lab and imaging results, discussing patient care, documentation in the medical record, and time spent with the family or caregiver and discussing care plan
with RN/Consultants.
Anticipated Discharge: 24 - 48 hours
Subjective/Interval History
-
Date of Service: May 02, 2025
Patient remains pleasantly confused
Unable to remember family member's name
not voicing any complains
Objective Data
-
Labs:
Laboratory Results
05/02/25
06:49
WBC 4.7 L
Hgb 11.4 L
Hct 33.4 L
Plt Count 206
Sodium 136
Potassium 4.5
Chloride 101
Carbon Dioxide 22
BUN 29 H
Creatinine 1.7 H
Glucose 109 H
Calcium 9.5
Vital Signs:
Vital Signs
Temp Pulse Resp BP Pulse Ox
98.2 F 97 21 143/97 97
05/02/25 09:21 05/02/25 09:21 05/02/25 09:21 05/02/25 09:21 05/02/25 09:21
Review of Systems
-
Respiratory: Reports No Symptoms
Cardiac: Reports No Symptoms
Abdomen/GI: Reports No Symptoms
Physical Exam
-
General: No Apparent Distress
Cardiac: Regular Rhythm and S1/S2; Negative Murmur, Rub or Gallop
GI: Soft, Nontender and Nondistended; Negative Organomegaly
Rectal: Deferred by Provider
Skin: Negative Rash
Neuro: Awake and Alert; Negative Oriented (Name and place)
[2025-05-02 12:22] LABS: Glucose - Point of Care 162 mg/dl (70-99)
[2025-05-02 13:17] LABS: Glucose - Point of Care 194 mg/dl (70-99)
--- NOTE | 2025-05-02 15:59 | CON.NEURO ---
Neuro Assessment/Plan
Assessment
CTA head/neck imgs rev'd, agree right ICA origin stenosis, ~80% no calcified plaque.
brain MRI imgs rev'd, no evidence for stroke. severe atrophy.
Asymptomatic right ICA stenosis. with soft plaque being higher stroke risk than calcified, I would estimate annual stroke risk ~15%, and at his age and dementia I would leave it alone.
Stroke secondary prevention, he is on Eliquis for DVT/PE
AMS, toxic metabolic encephalopathy
Consultation
Order
Date of Consultation: 05/02/25
Requesting Provider: Husam Buckley
Reason for Consult: right carotid stenosis
Subjective/Objective
Subjective Data
Date of Service: May 02, 2025
This is 89-year-old male with past medical history significant for CKD, hypertension, hyperlipidemia, BPH, GERD, hypothyroid, history of DVT, dementia presenting to the emergency department with alteration in mental status ~2 days. He was having
difficulty expressing himself, and felt mentally foggy. there were no focal deficits.
suspected due to medication side effects
Concern is for stroke/right ICA origin stenosis causing his symptoms
Objective Data
Vital Signs
Temp Pulse Resp BP Pulse Ox
36.4 C 104 23 125/63 97
05/02/25 13:34 05/02/25 13:34 05/02/25 13:34 05/02/25 13:34 05/02/25 13:34
Lab Results
05/02/25 06:49
05/02/25 06:49
Sodium 136 mmol/L (135-145) 05/02/25 06:49
Potassium 4.5 mmol/L (3.5-5.1) 05/02/25 06:49
BUN 29 mg/dl (9-20) H 05/02/25 06:49
Glucose 109 mg/dl (70-99) H 05/02/25 06:49
Calcium 9.5 mg/dl (8.4-10.2) 05/02/25 06:49
LDL Cholesterol, Calc 95 mg/dl 05/02/25 06:49
Vitamin B12 992 pg/ml (239-931) H 05/02/25 06:49
Patient Allergies
Penicillins Allergy (Verified 01/18/25 22:04)
Rash
shellfish derived Allergy (Verified 01/18/25 22:04)
Nausea / Vomiting
Physical Exam
-
AAOx0, speech soft, conversant, difficulty following complex commands
VFF, EOMI, face symmetric, masked fascies
full strength b/l UE/LE
+resting tremor
Medications
-
Active Medications
Generic Name Dose Route Start Last Admin
Trade Name Freq PRN Reason Stop Dose Admin
Acetaminophen 650 mg 05/01/25 20:33
Acetaminophen 650 Mg Rectal Suppository RECTAL 05/29/25 20:32
Q4HPRN PRN
PALMER, mild pain, or temp >100.4F
Acetaminophen 650 mg 05/01/25 20:33
Acetaminophen 325 Mg Tablet PO 05/29/25 20:32
Q4HPRN PRN
PALMER, mild pain, or temp >100.4F
Hydrocodone Bitart/Acetaminophen 1 tablet 05/01/25 20:33
Hydrocodone 7.5 Mg/Acetaminophen 325 Mg Tablet PO 05/15/25 20:32
BIDPRN PRN
severe pain
Apixaban 2.5 mg 05/01/25 20:33 05/02/25 07:50
Apixaban (Eliquis) 2.5 Mg Tablet PO 05/29/25 20:32 2.5 mg
BID SKYE Administration
Cetirizine HCl 5 mg 05/01/25 20:49
Cetirizine Hcl 10 Mg Tablet PO 05/29/25 20:48
HSPRN PRN
ALLERGIES
Cholecalciferol 25 mcg 05/02/25 08:00 05/02/25 07:50
Cholecalciferol (Vitamin D3) 25 Mcg Tablet (1,000 Units) PO 05/30/25 07:59 25 mcg
DAILY SKYE Administration
Cyanocobalamin 500 mcg 05/02/25 08:00 05/02/25 07:50
Cyanocobalamin 1,000 Mcg Tablet PO 05/30/25 07:59 500 mcg
DAILY SKYE Administration
Docusate Sodium 100 mg 05/01/25 20:33
Docusate Sodium 100 Mg Capsule PO 05/29/25 20:32
BIDPRN PRN
Constipation
Escitalopram Oxalate 20 mg 05/02/25 08:00 05/02/25 07:50
Escitalopram 20 Mg Tablet PO 05/30/25 07:59 20 mg
DAILY SKYE Administration
Insulin Aspart 0 units 05/02/25 07:30 05/02/25 15:47
Insulin Aspart Low Resistance 300 Units/3 Ml Pen.Injctr SC 05/30/25 07:29 Not Given
AC SKYE
Protocol
Levothyroxine Sodium 75 mcg 05/03/25 06:00
Levothyroxine 75 Mcg Tablet PO 05/31/25 05:59
DAILY @ 0600 SKYE
Minocycline HCl 100 mg 05/02/25 08:00
Minocycline 50 Mg Capsule PO
On Hold: 05/02/25 08:00 DAILY SKYE
Pantoprazole Sodium 40 mg 05/02/25 08:00 05/02/25 07:50
Pantoprazole 40 Mg Delayed Release Tablet PO 05/30/25 07:59 40 mg
DAILY SKYE Administration
Sennosides 8.6 mg 05/02/25 08:00 05/02/25 07:50
Sennosides (Senokot) 8.6 Mg Tablet PO 05/30/25 07:59 8.6 mg
DAILY SKYE Administration
Sodium Chloride 0 flush 05/01/25 21:00
Sodium Chloride 0.9% (Flush) Syringe IV 05/29/25 20:59
PER PROTOCOL SKYE
Tamsulosin HCl 0.4 mg 05/01/25 22:00 05/01/25 22:52
Tamsulosin 0.4 Mg Capsule PO 05/29/25 21:59 0.4 mg
HS SKYE Administration
Home Medications
�Medication �Instructions �Recorded
mirtazapine 30 mg tablet 30 mg PO HS Mental Health/Anxiety 11/19/19
omeprazole 20 mg capsule,delayed 20 mg PO DAILY Gastrointestinal 11/19/19
release Issue
cyanocobalamin (vitamin B-12) 500 500 mcg PO DAILY Supplement 11/08/23
mcg tablet (Vitamin B-12)
escitalopram oxalate 20 mg tablet 20 mg PO DAILY Mental 11/08/23
Health/Anxiety
levocetirizine 5 mg tablet (Xyzal) 5 mg PO QPMPRN PRN allergies 11/08/23
levothyroxine 50 mcg tablet 50 mcg PO DAILY Thyroid 11/08/23
tamsulosin 0.4 mg capsule 0.4 mg PO HS Urinary Issue 11/08/23
upadacitinib 15 mg tablet,extended 15 mg PO DAILY janus kinase inhib 11/08/23
release 24 hr (Rinvoq)
gabapentin 300 mg capsule 300 mg PO BID Neurological 01/19/25
Condition
minocycline 100 mg capsule 100 mg PO DAILY Infection 01/19/25
cholecalciferol (vitamin D3) 25 25 mcg PO DAILY Supplement #0 tabs 01/25/25
mcg (1,000 unit) tablet (Vitamin
D3)
apixaban 2.5 mg tablet (Eliquis) 2.5 mg PO BID 05/01/25
docusate sodium 100 mg capsule 100 mg PO BIDPRN PRN Constipation 05/01/25
hydrocodone 7.5 mg-acetaminophen 1 tab PO BIDPRN PRN severe pain 05/01/25
325 mg tablet
sennosides 8.6 mg tablet (senna) 8.6 mg PO DAILY Constipation 05/01/25
[2025-05-02 16:51] LABS: Glucose - Point of Care 186 mg/dl (70-99)
[2025-05-02] MEDS: NOVOLOG FLEXPEN-LOW RESISTANCE 1 UNITS SC (17:56)
[2025-05-02] MEDS: FLOMAX 0.4 MG PO (21:44)
[2025-05-02 21:46] LABS: Glucose - Point of Care 192 mg/dl (70-99)
[2025-05-03 03:00] VITALS: BP 141/84
[2025-05-03 04:24] LABS: Hematocrit 35.4 % (39.0-52.0); Hemoglobin 12.0 g/dL (13.0-18.0); Mean Corp Hgb Conc. 33.9 g/dL (33.0-37.0); Mean Corpuscular Volume 92.2 fL (80.0-94.0); Platelet Count 234 10^3/uL (130-400); Red Cell Dist. Width 13.9 % (11.5-14.5)
[2025-05-03 04:52] LABS: Blood Urea Nitrogen 31 mg/dl (9-20); Calcium 9.6 mg/dl (8.4-10.2); Carbon Dioxide 23 mmol/L (22-30); Chloride 103 mmol/L (98-107); Glucose 134 mg/dl (70-99); Magnesium 2.2 mg/dl (1.6-2.3); Potassium 4.2 mmol/L (3.5-5.1); Sodium 136 mmol/L (135-145); eGFR 33.51
[2025-05-03] MEDS: SYNTHROID 75 MCG PO (06:12)
[2025-05-03] MEDS: ELIQUIS PO ×2 (07:59→08:07)
[2025-05-03] MEDS: SENOKOT PO ×2 (08:00→08:07)
[2025-05-03] MEDS: VITAMIN B-12 PO ×2 (08:00→08:08)
[2025-05-03] MEDS: LEXAPRO PO ×2 (08:00→08:07)
[2025-05-03] MEDS: PROTONIX PO ×2 (08:00→08:07)
[2025-05-03] MEDS: VITAMIN D3 (cholecalciferol) PO ×2 (08:00→08:08)
[2025-05-03] MEDS: NOVOLOG FLEXPEN-LOW RESISTANCE SC ×2 (08:02→12:08)
[2025-05-03 08:03] LABS: Glucose - Point of Care 138 mg/dl (70-99)
[2025-05-03 08:27] VITALS: BP 138/80
[2025-05-03 12:05] LABS: Glucose - Point of Care 123 mg/dl (70-99)
--- NOTE | 2025-05-03 12:08 | W.PN.HOSP.TC ---
Today's Communication/Plan
-
d/c planning for snf rehab
Assessment / Plan
Assessment / Plan
1. Acute toxic metabolic encephalopathy
Suspected dementia
- Underlying dementia with aggravated symptoms likely from uncontrolled hypothyroidism versus medication side effect
- MRI brain done today and result is pending
- COVID check negative. RPR serology pending. B12 within normal limit
- TSH elevated approximately 10, free T4 within normal limit. will increase levothyroxine dose
- On norco for chronic pain relieve. Also on gabapentin for neuropathy. Remeron is anticholinergic in nature can cause daytime symptoms, will hold.
- Continue supportive care
2. Right ICA stenosis
- CTA showing 80% stenosis on right ICA
- Neuro evaluated and patient have high risk of stroke with annual risk of 15% per neuro. Due to age and dementia no further intervention recommended.
3. History of DVT/PE
- Continue on home dose of Eliquis
4. CKD stage IIIb/IV
- Creatinine is close to baseline
- Avoid nephrotoxic medication
5. Type 2 diabetes mellitus
- last a1c of 5.8 on chart review
- not on any anti-diabetic meds, monitor
Chronic anemia
GERD
Essential hypertension
Hyperlipidemia
DVTPPX - eliquis
Full code
Anticipated Discharge: Within 24 hours
Subjective/Interval History
-
Date of Service: May 03, 2025
Some reported agitation in the morning
Declined to take home medication
Objective Data
-
Labs:
Laboratory Results
05/03/25
03:42
WBC 4.6 L
Hgb 12.0 L
Hct 35.4 L
Plt Count 234
Sodium 136
Potassium 4.2
Chloride 103
Carbon Dioxide 23
BUN 31 H
Creatinine 1.9 H
Glucose 134 H
Calcium 9.6
Vital Signs:
Vital Signs
Temp Pulse Resp BP Pulse Ox
97.9 F 99 18 138/80 99
05/03/25 08:27 05/03/25 08:27 05/03/25 08:27 05/03/25 08:27 05/03/25 08:27
I&O
05/02/25 05/03/25 05/04/25
06:59 06:59 06:59
Intake Total 240 / 240
Balance 240 / 240
Review of Systems
-
Unable to obtain full review of systems at this time due to: Dementia and Acuity
Physical Exam
-
General: No Apparent Distress
HEENT: Negative Oxygen
Neuro: Awake, Alert and No Motor Deficits
[2025-05-03 12:16] VITALS: BP 142/82
--- NOTE | 2025-05-03 13:54 | CM ---
CM met briefly with Albaro who was in bed, eating his lunch (Soup). He is disoriented, not conversant or aware of his surroundings.
Call to his son to discuss discharge planning; VM left for his son requesting call to my cell today, vs. call to CM Department tomorrow.
--- NOTE | 2025-05-03 14:12 | CM ---
Call placed to pt's son to discuss discharge plans. Pt has been living in an apartment at [facility] with 4 hours of aid services on Tuesdays and from 10a-2p.
PT and OT recommend SNF; son is agreeable to pt going to [facility] if his mental status does not improve; he is also going to consider additional services in the apartment after his stay in [facility].
Negative Covid test will be required by facility prior to transfer.
Referral submitted via [facility] for transfer to [facility] SNF pending bed availability.
[facility] Report: [phone]
[facility]
[2025-05-03 16:13] VITALS: BP 137/73
[2025-05-03 16:23] LABS: Glucose - Point of Care 195 mg/dl (70-99)
[2025-05-03] MEDS: NOVOLOG FLEXPEN-LOW RESISTANCE 1 UNITS SC (16:43)
[2025-05-03 19:54] VITALS: BP 128/79
[2025-05-03] MEDS: ELIQUIS 2.5 MG PO (20:09)
[2025-05-03 21:35] LABS: Glucose - Point of Care 110 mg/dl (70-99)
[2025-05-03] MEDS: FLOMAX 0.4 MG PO (21:55)
[2025-05-03 23:48] VITALS: BP 132/86
[2025-05-04 03:30] VITALS: BP 144/79
[2025-05-04] MEDS: SYNTHROID PO (06:06)
[2025-05-04 07:00] VITALS: BP 128/59
[2025-05-04 07:21] LABS: Hematocrit 34.8 % (39.0-52.0); Hemoglobin 11.8 g/dL (13.0-18.0); Mean Corp Hgb Conc. 33.9 g/dL (33.0-37.0); Mean Corpuscular Volume 93.0 fL (80.0-94.0); Platelet Count 217 10^3/uL (130-400); Red Cell Dist. Width 13.7 % (11.5-14.5)
[2025-05-04] MEDS: PROTONIX 40 MG PO (07:48)
[2025-05-04] MEDS: ELIQUIS 2.5 MG PO (07:48)
[2025-05-04] MEDS: VITAMIN D3 (cholecalciferol) 25 MCG PO (07:48)
[2025-05-04] MEDS: SENOKOT 8.6 MG PO (07:48)
[2025-05-04] MEDS: LEXAPRO 20 MG PO (07:48)
[2025-05-04] MEDS: VITAMIN B-12 500 MCG PO (07:48)
[2025-05-04] MEDS: NOVOLOG FLEXPEN-LOW RESISTANCE SC ×2 (07:49→12:13)
[2025-05-04 07:50] LABS: Blood Urea Nitrogen 35 mg/dl (9-20); Calcium 9.4 mg/dl (8.4-10.2); Carbon Dioxide 22 mmol/L (22-30); Chloride 105 mmol/L (98-107); Glucose 120 mg/dl (70-99); Potassium 4.1 mmol/L (3.5-5.1); Sodium 139 mmol/L (135-145); eGFR 29.72
[2025-05-04 07:51] LABS: Glucose - Point of Care 120 mg/dl (70-99)
--- NOTE | 2025-05-04 09:59 | PN.CDI ---
CDI
- -
CDI:
Physician Documentation Request
Admit Date: 05/01/25 19:42
Dear Doctor Marcio,
Clinical Indicators:
Patient admitted with toxic metabolic encephalopathy.
05/02 Magnesium sulfate 4 gm IV rider x 1.
Magnesium level on admission:
05/02/25
06:49
Magnesium 0.9 L*
Based on the above, could you clarify in the progress notes, the appropriate diagnosis, if significant, that supports the above abnormalities and additional evaluation, monitoring and/or treatment rendered:
Hypomagnesemia
Abnormal lab value, clinically insignificant
Other, please specify
Use of terms such as suspected, likely, concern for, or probable (associated with a specific diagnosis that is being evaluated, monitored, or treated as if it exists) are acceptable and can be coded in the inpatient setting, when documented at the
time of discharge.
Thank you,
ALEXI Bynum RN
CDI Specialist
available via tiger text
Please use your independent medical judgment in providing your response.
--- NOTE | 2025-05-04 10:05 | PN.CDI ---
CDI
- -
CDI:
Physician Documentation Request
Admit Date: 05/01/25 19:42
Dear Doctor Marcio,
Clinical Indicators:
The diagnosis of Bifascicular block was included in the signed EKG report.
05/01 EKG: Right bundle branch block with Left anterior fascicular block
Telemetry monitoring: NSR with bundle branch configuration noted
Please indicate in your progress notes if you are in agreement that the above diagnosis is valid for this patient:
Bifascicular block is a valid diagnosis
Bifascicular block is not a valid diagnosis for this patient
Other, please specify
Use of terms such as suspected, likely, concern for, or probable are acceptable for a diagnosis that is being evaluated, monitored or treated as if it exists and can be coded in the inpatient setting, when documented at the time of discharge.
Thank you,
ALEXI Bynum RN
CDI Specialist
available via tiger text
Please use your independent medical judgment in providing your response.
[2025-05-04 11:00] VITALS: BP 144/82
[2025-05-04 11:56] LABS: Glucose - Point of Care 130 mg/dl (70-99)
--- NOTE | 2025-05-04 12:50 | CM ---
Patient has been medically cleared for discharge to [facility] for assisted and rehab services. [facility] liaison will obtain insurance auth. Transport via ambulance. Awaiting transport time. IMM completed. Son notified.
[facility] Report: [phone]
[facility]
--- NOTE | 2025-05-04 13:03 | WOUNDNOTE ---
[facility] RN note: Patient admitted with altered mental status
See H&P for complete history. [facility] choice.
PMH: ED Past Medical History: Cancer (Skin CA), HTN, NIDDM (Managed with diet), Psychiatric (Depression) and Other (DVT, Headache, Renal calculus, Iron def anemia, Ulcerative colitis)
ED Past Surgical History: Orthopedic (Right shoulder Rotator cuff repair, Left knee replacement, Left hip replacement. ) and Other (Hiatal hernia repair at [place] last year, Parotid tumor removed, Detached retina, Lasik eye surgery, Hernia repair X
2)
Wound Location and type/assessment: Patient admitted with: L arm skin tear, appears to have granulating base. Sacrum blanchable red, scrotum and groin skin folds red fungal rash. Heels boggy but blanchable red.
Appetite: Good.
Pressure redistribution devices in place: air mattress
Plan: ordered fungal powder for groin and scrotum, nurse [facility] aware and will apply. Applied protective foams to sacrum and heels. Local wound care applied to L arm. Will confirm orders with hospitalist and update nurse.
Updated care plan and will follow as needed.
Note to case management of equipment requested for discharge: None.
--- NOTE | 2025-05-04 13:44 | CM ---
Patient has been medically cleared for discharge to [facility] for nursing home and rehab services. [facility] liaison will obtain insurance auth. Transport via ambulance. Awaiting transport time. IMM completed. Son notified.
[facility] Report: [phone]
[facility]
--- NOTE | 2025-05-04 14:37 | W.PN.HOSP.TC ---
Addendum entered and electronically signed by Husam Buckley MD 05/05/25 17:17:
Add to diagnosis list:
Bifascicular block
Hypomagnesemia
Original Note:
Today's Communication/Plan
-
d/c for snf rehab
Assessment / Plan
Assessment / Plan
1. Acute toxic metabolic encephalopathy - reason unclear
Dementia
- Underlying dementia with aggravated symptoms likely from uncontrolled hypothyroidism versus medication side effect
- MRI brain did not show new issues.
- COVID check negative. RPR serology pending. B12 within normal limit
- TSH elevated approximately 10, free T4 within normal limit. will increase levothyroxine dose
- On norco for chronic pain relieve. Also on gabapentin for neuropathy. Remeron is anticholinergic in nature can cause daytime symptoms, will hold.
- Continue supportive care
- Changed to Risperdal as needed for any night time agitation.
2. Right ICA stenosis
- CTA showing 80% stenosis on right ICA
- Neuro evaluated and patient have high risk of stroke with annual risk of 15% per neuro. Due to age and dementia no further intervention recommended.
3. History of DVT/PE
- Continue on home dose of Eliquis
4. CKD stage IIIb/IV
- Creatinine is close to baseline
- Avoid nephrotoxic medication
5. Type 2 diabetes mellitus
- last a1c of 5.8 on chart review
- not on any anti-diabetic meds, monitor
Chronic anemia
GERD
Essential hypertension
Hyperlipidemia
DVTPPX - eliquis
Full code
More than 30 minutes spent in discharge including
Final examination of the patient
Summarizing hospital stay
Instructions for continuing care to all relevant caregivers
Preparation of discharge records, prescriptions, and referral forms
Total time spent (in minutes):
Anticipated Discharge: Today
Subjective/Interval History
-
Date of Service: May 04, 2025
Remains pleasantly disoriented
No reported agitation overnight
Objective Data
-
Labs:
Laboratory Results
05/04/25
06:47
WBC 4.3 L
Hgb 11.8 L
Hct 34.8 L
Plt Count 217
Sodium 139
Potassium 4.1
Chloride 105
Carbon Dioxide 22
BUN 35 H
Creatinine 2.1 H
Glucose 120 H
Calcium 9.4
Vital Signs:
Vital Signs
Temp Pulse Resp BP Pulse Ox
98.0 F 97 18 144/82 97
05/04/25 11:00 05/04/25 11:00 05/04/25 11:00 05/04/25 11:00 05/04/25 11:00
I&O
05/03/25 05/04/25 05/05/25
06:59 06:59 06:59
Intake Total 240 / 240 720 / 720
Balance 240 / 240 720 / 720
Review of Systems
-
Respiratory: Reports No Symptoms
Cardiac: Reports No Symptoms
Abdomen/GI: Reports No Symptoms
Physical Exam
-
General: No Apparent Distress
HEENT: Negative Oxygen
Neuro: Awake, Alert and No Motor Deficits
[2025-05-04 14:45] LABS: COVID-19 Antigen Negative (Negative)
[2025-05-04 15:00] VITALS: BP 123/65
--- NOTE | 2025-05-04 15:29 | W.DCSUMMARY ---
Discharge Summary
Discharge Data
Date of Admission: 05/01/25
Date of Discharge: 05/04/25
-
Pending Results: No
Hospital Course
Discharging Physician : Dr Husam Buckley
Disposition : To home
Primary care physician : Dr Randi Villarreal
Principal Discharge diagnosis :
Acute toxic metabolic encephalopathy
Dementia with behavioral issues
Right internal carotid artery stenosis
Chronic Discharge diagnosis :
Chronic kidney disease stage IIIb/IV
History of deep venous thrombosis/pulmonary embolism
Type 2 diabetes mellitus
Chronic anemia
Gastric esophageal reflux disease
Essential hypertension hyperlipidemia
Hyperlipidemia
Hospital Course :
Patient is 89-year-old male with a mentioned past medical history was brought in for worsening confusion. Patient with history of dementia and was felt to having worsening confusion episode. Here patient was checked for COVID was negative.
Patient had a CTA head and neck which showed right ICA stenosis. Neurology was involved in care and patient had a follow-up brain MRI which ruled out any stroke. Right ICA stenosis was deemed to be asymptomatic and due to advanced age and dementia
neurology recommended against any further evaluation for intervention. Patient thyroid function levels were checked and TSH was somewhat elevated at 10. Levothyroxine dose was increased. Patient also on combination of Bowen/gabapentin/Remeron,
Remeron was discontinued due to anticholinergic effects. Patient was instead started on Risperdal as needed for any behavioral issues overnight. Patient continued to remain on and off confused. Physical therapy evaluated patient and was
appropriate for senior living facility for rehab and was discharged to rehab.
Important imaging findings :
None
Procedure findings :
None
Discharge Plan
-
Patient Disposition: Home (Routine Discharge)
Discharge Diagnosis/Procedures: Encephalopathy, possible medication related, Dementia, Hypothyroidism
Condition: Fair
Diet: Regular
Activity: As tolerated
Driving Restrictions: No driving
Bathing Restrictions: OK to Shower
Blood Work: TSH/FT4 in 4-6 weeks
Activity Restrictions/Additional Instructions:
Wound Care Instructions
L arm: clean with saline, vaseline gauze and dry dressing change q 2 days and prn drainage.
sacrum: silicone foam or if soiled barrier cream prn soilage
scrotum and groin skin folds: fungal powder bid
Follow up at wound care center call for an appointment.
Gabapentin and Remeron discontinued due to concern of confusion, can be re-introduced at lower dose if needed.
Referrals:
Randi Villarreal DO [Family Provider, Internal Medicine] - in one week
Prescriptions:
New
risperidone 1 mg Tablet,Disintegrating
1 mg PO BIDPRN PRN (Reason: agitation) Qty: 60 0RF
levothyroxine 75 mcg Tablet
75 mcg PO DAILY @ 0600 Qty: 30 2RF
Continued
omeprazole 20 MG capsule,delayed release(DR/EC)
20 mg PO DAILY
tamsulosin 0.4 mg capsule
0.4 mg PO HS
escitalopram oxalate 20 mg tablet
20 mg PO DAILY
Rinvoq 15 mg Tablet Extended Release 24 Hr
15 mg PO DAILY
cyanocobalamin (vitamin B-12) [Vitamin B-12] 500 mcg Tablet
500 mcg PO DAILY
levocetirizine [Xyzal] 5 mg Tablet
5 mg PO QPMPRN PRN (Reason: allergies)
minocycline 100 mg Capsule
100 mg PO DAILY
cholecalciferol (vitamin D3) [Vitamin D3] 25 mcg (1,000 unit) Tablet
25 mcg PO DAILY Qty: 0 0RF
hydrocodone-acetaminophen 7.5-325 mg Tablet
1 tab PO BIDPRN PRN (Reason: severe pain)
Eliquis 2.5 mg Tablet
2.5 mg PO BID
sennosides [senna] 8.6 mg tablet
8.6 mg PO DAILY
docusate sodium 100 mg capsule
100 mg PO BIDPRN PRN (Reason: Constipation)
Discontinued
mirtazapine 30 MG tablet
30 mg PO HS
levothyroxine 50 mcg tablet
50 mcg PO DAILY
gabapentin 300 mg Capsule
300 mg PO BID
Discharge Orders:
Discharge Patient (As Directed); Ordered 05/04/25
Ordered By: Husam Buckley
Discharge Date and Time
Discharge Date/Time: 05/04/25 15:46
Print Language: FIJIAN
[2025-05-05 13:35] LABS: Syphilis/T. pallidum Ab Reflex Negative (Negative)
== END 2025-05-04 15:46 | DRG 92 ==
LOC: 3 WEST ACU 19:42
PROVIDERS: Emergency Medicine; ADMITTING PHYSICIAN Internal Medicine; ATTENDING PHYSICIAN Hospitalist; CONSULT PHYSICIAN Psychiatry & Neurology Clinical Neurophysiology; EMERGENCY PHYSICIAN Emergency Medicine; FAMILY PHYSICIAN Internal Medicine
DX: G92.8 Other toxic encephalopathy (principal); F03.918 Unspecified dementia, unspecified severity, with other behavioral disturbance; K51.90 Ulcerative colitis, unspecified, without complications; N18.4 Chronic kidney disease, stage 4 (severe); I45.2 Bifascicular block; E83.42 Hypomagnesemia; K59.00 Constipation, unspecified; I65.21 Occlusion and stenosis of right carotid artery; I12.9 Hypertensive chronic kidney disease with stage 1 through stage 4 chronic kidney disease, or unspecified chronic kidney disease; E78.00 Pure hypercholesterolemia, unspecified; N40.0 Benign prostatic hyperplasia without lower urinary tract symptoms; E03.9 Hypothyroidism, unspecified; D63.1 Anemia in chronic kidney disease; E11.22 Type 2 diabetes mellitus with diabetic chronic kidney disease; K21.9 Gastro-esophageal reflux disease without esophagitis; Z79.899 Other long term (current) drug therapy; Z11.52 Encounter for screening for COVID-19; Z87.891 Personal history of nicotine dependence; Z86.718 Personal history of other venous thrombosis and embolism; Z79.890 Hormone replacement therapy; Z79.01 Long term (current) use of anticoagulants
CPT/HCPCS: 70496; 70498; 70551; 71045; 80048; 80053; 80061; 81003; 81015; 82607; 82962; 83036; 83735; 84439; 84443; 85025; 85027; 86780; 87811; 92610; 93005; 94760; 96360; 97163; 97167; 99285; Q9967